=== PATIENT | female | born 1955 | race Caucasian/White ===

== ENCOUNTER 2024-02-09 12:27 | Outpatient (AMB) | payer MEDICARE, SELFPAY ==
--- NOTE | 2024-02-09 12:35 | MHC.OFFWIV ---
Intake Vital Signs 02/09/24 12:45 Height 5 ft 4 in Weight 164 lb BMI 28.1 BP 112/64 Blood Pressure Location Rt brachial Position Sitting Pulse 74 Pulse Source Pulse Oximeter Temp 97.7 F Temp Source Oral Pulse Oximetry (%) 97 Oxygen Delivery Method Room Air Intake Visit Reasons: EP ?UTI Intake Note: pt is here for c/o possible uti Allergies erythromycin base [ERYTHROMYCIN BASE] Allergy (Unknown, Verified 02/09/24 12:45) HIVES acetaminophen [From PERCOCET] Adverse Reaction (Unknown, Verified 02/09/24 12:45) STOMACH UPSET tramadol [TRAMADOL] Adverse Reaction (Unknown, Verified 02/09/24 12:45) NAUSEA & VOMITING From FLEXERIL Adverse Reaction (Unknown, Uncoded 04/26/20 16:50) NAUSEA & VOMITING From PERCOCET Adverse Reaction (Unknown, Uncoded 04/26/20 16:50) STOMACH UPSET Do you need a note to return to daycare/school/sports/work: No HPI HPI Comments History of Present Illness Details Patient is a 68-year-old female complaining of 2 days of pain with urination and slight burning. She denies any back pain, fevers or history of kidney stones. However she does state she has an elevated creatinine at baseline. Review of Systems Const All systems reviewed & are unremarkable except as noted in HPI and below Physical Exam Vital Signs: Last Vital Signs Temp 97.7 F 02/09/24 12:45 Pulse 74 02/09/24 12:45 BP 112/64 02/09/24 12:45 Pulse Ox 97 02/09/24 12:45 Oxygen Delivery Method Room Air 02/09/24 12:45 BMI result Body Mass Index 28.1 Const General: cooperative, healthy appearing, comfortable, no acute distress and well developed Orientation/consciousness: patient oriented x3 Limitations: no limitations Eyes General: appearance normal, both eyes and all related structures Resp Effort & Inspection: normal respiratory effort and able to speak in complete sentences General: Yes no CVA tenderness Back/Spine/Pelvis Back: no CVA tenderness Neuro General: patient oriented x3 Assessment & Plan Assessment & Plan (1) UTI (urinary tract infection): Code(s): N39.0 - Urinary tract infection, site not specified Qualifiers: Urinary tract infection type: acute cystitis Hematuria presence: with hematuria Qualified Code(s): N30.01 - Acute cystitis with hematuria Plan: UA positive for leukocyte esterase, protein and blood. Sent prescription for cefuroxime to pharmacy. Educated patient on signs and symptoms to know when to go to the emergency department Plan see above Medications: New cefuroxime axetil 500 mg PO Q12H 10 tabs 0RF Coding Level of Care Code Est Pt Level 3 (38428) Diagnoses Acute cystitis with hematuria N30.01 Urinary tract infection type: acute cystitis Hematuria presence: with hematuria
[2024-02-09 12:45] VITALS: BP 112/64; PULSE 74; TEMP 36.5; O2SAT 97; BMI 28.1
== END 2024-02-09 13:01 | disposition home or self-care (01) ==
PROVIDERS: Visit Provider Physician Assistant
DX: N30.01 Acute cystitis with hematuria (principal)
CPT/HCPCS: 81003; 99213

== ENCOUNTER 2024-02-27 12:40 | Outpatient (AMB) | payer MEDICARE, SELFPAY ==
[2024-02-27 12:44] VITALS: BP 132/70; PULSE 88; TEMP 36.8; O2SAT 96; BMI 28.3
--- NOTE | 2024-02-27 12:44 | MHC.OFFWIV ---
Intake Vital Signs 02/27/24 12:44 Height 5 ft 4 in Weight 165 lb BMI 28.3 BP 132/70 Blood Pressure Location Rt brachial Position Sitting Pulse 88 Pulse Source Pulse Oximeter Temp 98.2 F Temp Source Oral Pulse Oximetry (%) 96 Oxygen Delivery Method Room Air Intake Visit Reasons: EP UTI Intake Note: Pt is here today c/o burning upon urination and urgency Allergies erythromycin base [ERYTHROMYCIN BASE] Allergy (Unknown, Verified 02/27/24 13:04) HIVES acetaminophen [From PERCOCET] Adverse Reaction (Unknown, Verified 02/27/24 13:04) STOMACH UPSET tramadol [TRAMADOL] Adverse Reaction (Unknown, Verified 02/27/24 13:04) NAUSEA & VOMITING From FLEXERIL Adverse Reaction (Unknown, Uncoded 02/27/24 12:57) NAUSEA & VOMITING From PERCOCET Adverse Reaction (Unknown, Uncoded 02/27/24 12:57) STOMACH UPSET Medication List - Last Reconciled 02/27/24 by Chela Herozg, TELEGRAPH EDITOR-BC diltiazem HCl ER (DILT-XR) 180 mg PO DAILY hydrochlorothiazide 25 mg PO DAILY metoprolol succinate ER 50 mg PO DAILY omeprazole 40 mg PO DAILY simvastatin 40 mg PO QPM HPI HPI Comments History of Present Illness Details 69-year-old female here today with complaints of a UTI. Reports that the symptoms of dysuria started this morning. Was seen at another walk-in clinic about 3 weeks ago for a UTI and treated with Keflex. She reports that her symptoms resolved entirely and returned only this morning. She denies any fever, chills, abdominal pain, nausea, vomiting, back pain, vaginal discharge or itch. The urine today does show leukocytes, protein, blood, ketones, negative glucose. When asked about diabetes history she reports she does not have diabetes. When asked about his kidney disease history she does endorse elevated creatinine. She also states that she was on vacation for the last 6 days sitting in the sun and was not drinking enough fluid. Exam Awake alert oriented no acute distress Mucous membranes moist Regular rate and rhythm No CVAT bilat Suprapubic pressure with palpation Plan: Given her sx just started this AM, urine dip may not be + for nitrites yet, therefore i will go ahead and tx empirically w/ renally dosed Bactirm for 3 days. Encouraged to hydrate well and given RTO directions. This note is constructed using voice recognition software. While every effort has been made to ensure accuracy in medical radiation tech, still errors may have been included Sometimes, these errors may affect the content or meaning of the given sentence . Total time spent caring for the patient today was 30 minutes. This includes time spent before the visit reviewing the chart, time spent during the visit, and time spent after the visit on documentation Physical Exam Vital Signs: Last Vital Signs Temp 98.2 F 02/27/24 12:44 Pulse 88 02/27/24 12:44 BP 132/70 02/27/24 12:44 Pulse Ox 96 02/27/24 12:44 Oxygen Delivery Method Room Air 02/27/24 12:44 BMI result Body Mass Index 28.3 Results AMB Urinalysis, Automated UA Leukoctes 70 Karine/uL Last Edit by Elvira Alex CMA on 02/27/24 12:55 UA Nitrite Negative Last Edit by Elvira Alex CMA on 02/27/24 12:55 UA Urobilinogen 0.2 mg/dL Last Edit by Elvira Alex CMA on 02/27/24 12:55 UA Protein 30 mg/dL Last Edit by Elvira Alex CMA on 02/27/24 12:55 UA pH 6.0 Last Edit by Elvira Alex CMA on 02/27/24 12:55 UA Blood 10 Dutch/uL Last Edit by Elvira Alex CMA on 02/27/24 12:55 UA Specific [place] 1.025 Last Edit by Elvira Alex CMA on 02/27/24 12:55 UA Ketone Positive Last Edit by Elvira Alex CMA on 02/27/24 12:55 UA Bilirubin 1 mg/dL Last Edit by Elvira Alex CMA on 02/27/24 12:55 UA Glucose 0 mg/dL Last Edit by Elvira Alex CMA on 02/27/24 12:55 Results Reviewed Results Reviewed: Laboratory Last Values Urine pH (Auto) 6.0 02/27/24 12:45 Specific [place] (Auto) 1.025 02/27/24 12:45 Urine Protein (Auto) 30 mg/dL 02/27/24 12:45 Glucose (UA)(Auto) 0 mg/dL 02/27/24 12:45 Urine Ketones (Auto) Positive 02/27/24 12:45 Urine Blood (Auto) 10 Dutch/uL 02/27/24 12:45 Urine Nitrite (Auto) Negative 02/27/24 12:45 Urine Bilirubin (Auto) 1 mg/dL 02/27/24 12:45 Urine Urobilinogen (Auto) 0.2 mg/dL 02/27/24 12:45 Leukocyte Esterase (Auto) 70 Karine/uL 02/27/24 12:45 Assessment & Plan Assessment & Plan (1) UTI (urinary tract infection): Code(s): N39.0 - Urinary tract infection, site not specified Qualifiers: Urinary tract infection type: acute cystitis Hematuria presence: with hematuria Qualified Code(s): N30.01 - Acute cystitis with hematuria Plan: . Orders: Orders AMB Urinalysis Automated Today Z13.9 - Encounter for screening, unspecified Medications: New sulfamethoxazole-trimethoprim 400-80 mg (Bactrim) 1 tab PO BID 6 tabs 0RF Coding Level of Care Code Est Pt Level 4 (98350) Diagnoses Acute cystitis with hematuria N30.01 Urinary tract infection type: acute cystitis Hematuria presence: with hematuria
== END 2024-02-27 13:10 | disposition home or self-care (01) ==
PROVIDERS: Visit Provider Nurse Practitioner Family
DX: Z13.9 Encounter for screening, unspecified (principal); N30.01 Acute cystitis with hematuria
CPT/HCPCS: 81003; 99051; 99214

== ENCOUNTER 2024-09-15 09:50 | Outpatient (REF) | payer MEDICARE, SELFPAY ==
--- OUTSIDE RECORDS SUMMARY | 2024-09-15 11:14 | XMS_ITS | Clinical Summary ---
Author Organization [facility] Address [address] [place] [address] Care Team Providers Care Digital Asset Specialist Name Role Phone Vinay Lawson SHILPI Primary Care Provider [phone] Surgical History Surgery Date Site/Laterality Comments OTHER SURGICAL HISTORY 1998 PROCEDURE: CA TOTAL ABDOMINAL HYSTERECT W/WO RMVL TUBE OVARY TONSILLECTOMY PROCEDURE: HISTORICAL TONSILLECTOMY COLONOSCOPY 06/05/2008 PROCEDURE: HISTORICAL COLONOSCOPY; COMMENT: normal; repeat in ten years OTHER SURGICAL HISTORY 2003 PROCEDURE: CA ARTHRD ANT TRANSORL/XTRORAL C1-C2 W/WO EXC ODNTD OTHER SURGICAL HISTORY 2003 PROCEDURE: CA ARTHRODESIS POSTERIOR INTERBODY 1 [facility] EA ADDL Medical History Medical History Date Comments Unspecified hypothyroidism 08/16/2005 DX:Un specified hypothyroidism Lumbago 08/18/2005 DX:Lumbago Unspecified hypothyroidism 08/16/2005 DX:Un specified hypothyroidism Tobacco use disorder 07/21/2006 DX:Tobacco use disorder GERD (gastroesophageal reflu x disease) DX:GERD (gastroesophageal re flux disease) Pain of right hip joint DX:Pain of right hip joint Visual disturbance DX:Visual dis turbance Family History Medical History Relation Name Comments Other: Liver Transplant Brother 1 Other: Heart Disease Father Diabetes Mother No Known Problems Sister 1 No Known Problems Sister 2 Relation Name Status Comments Brother 1 at 61 y/o Brother 2 Alive Father (Age 51) Passed emmanuel y at 51 y/o Mother at 91 y/o Sister 1 Alive Sister 2 Alive Social History Tobacco Use Types Packs/Day Years Used Date Smoking Tobacco: Former Cigarettes Smokeless Tobacco: Never Alcohol Use Standard Drinks/Week Comments Yes 0 (1 standard drink = 0.6 oz pur e alcohol) Sex and Gender Information Value Date Recorded Sex Assigned at Not on file Gender Identity Not on file Sexual Orientation Not on file Obstetrics History Last Filed Vital Signs Vital Sign Reading Time Taken Comments Blood Pressure 136/76 06/30/2022 9:18 AM EST Sit ting L Arm Pulse 71 06/30/2022 9:10 AM EST Temperature - - Respiratory Rate - - Oxygen Saturation - - Inhaled Oxygen Concentration - - Weight 76.7 kg (169 lb) 06/30/2022 9:10 AM EST Height 162.6 cm (5' 4 ) 06/30/2022 9:10 AM EST Body Mass Index 29.01 06/30/2022 9:10 AM EST Plan of Treatment Health Maintenance Due Date Last Done Comments Zoster Vaccines (1 of 2) 02/10/2004 RSV Immunization Patients 60 + Years Old (1 - Risk 60-74 years 1-dose series) 2014 DTaP,Tdap,and Td Vaccines (2 - Td or Tdap) 11/01/2017 11/02/2007 Pneumococcal Vaccine: 65+ Years (1 of 1 - PCV) 2019 Cholesterol Screening (Lipid Panel) 07/08/2022 Colorectal Cancer Screening: Colonoscopy 07/08/2022 Depression Screening 07/08/2022 Falls Risk Assessment 07/08/2022 Hepatitis C Screening 07/08/2022 Social Influencers of Health Screening 07/08/2022 Hypertension/CHF/CAD Annual BMP Blood Test 07/20/2022 Breast Cancer Screening 01/14/2024 01/14/20, 01/09/2021, 07/26/2018 COVID-19 Vaccine ( - 2023-2 5 season) 2024 Influenza Vaccine (#1) 2024 Osteoporosis Screening (Bone Density Screening) 09/23/2031 09/23/2021 HIB Vaccines Aged Out No longer eligi ble based on patient's age to complete this topic HPV Vaccines Aged Out No longer eligi ble based on patient's age to complete this topic Hepatitis A Vaccines Aged Out No long er eligible based on patient's age to complete this topic Hepatitis B Vaccines Aged Out No long er eligible based on patient's age to complete this topic IPV Vaccines Aged Out No longer eligi ble based on patient's age to complete this topic MMR Vaccines Aged Out No longer eligi ble based on patient's age to complete this topic Meningococcal ACWY Vaccine Aged Out N o longer eligible based on patient's age to complete this topic RSV Immunization Patients Under 20 months Aged Out No longer eligible b ased on patient's age to complete this topic Varicella Vaccines Aged Out No longer eligible based on patient's age to complete this topic Procedures Procedure Name Priority Date/Time Associated Diagnosis Comments [facility] SCREENING DIGITAL Routine 01/13/2022 10:09 AM EDT Encounter for screening mammogram for malignant neoplasm of breast [facility] DEXA AXIAL SKELETON Routine 09/23/2021 11:48 AM EST Encounter for screening for osteoporosis from Last 3 Months or Most Recently Relevant to Health Maintenance Results * [facility] SCREENING DIGITAL (01/13/2022 10:09 AM EDT) Anatomical Region Laterality Modality Mammography 01/13/2022 8:33 AM EDT Narrative 01/13/2022 10:09 AM EDT [facility] Diagnostic Imaging Department [address] [place], [place] [address] Patient: ??SANTY MCCURDY ?/Age/Sex: 1955 - 66 - F Unit#: ??[id number] ? Location/Status: ??SPDIMAM/REG CLI ? Mnemonic/Ordering Site: ??DIGSC/SPMAM Ordering Physician: ??VINAY LAWSON DNP [facility] Screening Digital - 01/13/22911 INDICATION: SCREENING COMPARISON: [facility] mammograms dating back to ?? 07/19/2011 TECHNIQUE: CC and MLO views of the breasts were obtained, using full field digital mammography with 3D tomosynthesis views in the MLO projection. Computer aided detection with the [employer] 7.2-H was employed. FINDINGS: The breasts contain scattered fibroglandular tissues. No suspicious masses, suspicious microcalcifications, or areas of architectural distortion are identified. ??There are no secondary signs of breast malignancy. Benign-appearing breast and dermal type calcifications are present bilaterally. IMPRESSION: ??No specific mammographic evidence of breast malignancy. Lack of an imaging correlate should not deter or delay biopsy of a clinically significant palpable finding. BI-RADS ??- Category 2 - Benign finding 3342F, 7025F Annual screening mammography is recommended. Patient entered into a reminder system with a target date for the next mammogram. (G0202 / [id number]) , ??[id number] Dictating Physician: ??HARMONY LINCOLN MD Electronically Signed by: ??HARMONY LINCOLN MD Dic Date/Time: ??01/13/22 1005 Sign date/Time: ??01/13/22 1009 Procedure Note Harmony Lincoln MD - 07/30/2022 [facility] Diagnostic Imaging Department [address] [place] [address] Patient: SANTY MCCURDY Eri /Age/Sex: 1955 - 66 - F Unit#: [id number] Location/Status: [facility] CLI Mnemonic/Ordering Site: [facility] Ordering Physician: VINAY LAWSON DNP [facility] Screening Digital - 01/13/22 - 911 INDICATION: SCREENING COMPARISON: [facility] mammograms dating back to 07/19/2011 TECHNIQUE: CC and MLO views of the breasts were obtained, using full field digital mammography with 3D tomosynthesis views in the MLO projection. Computer aided detection with the [employer].2-H was employed. FINDINGS: The breasts contain scattered fibroglandular tissues. No suspicious masses, suspicious microcalcifications, or areas ofarchitectural distortion are identified. There are no secondary signs of breastmalignancy. Benign-appearing breast and dermal type calcifications are presentbilaterally. IMPRESSION: No specific mammographic evidence of breast malignancy. Lack of an imaging correlate should not deter or delay biopsy of aclinically significant palpable finding. BI-RADS - Category 2 - Benign finding 3342F, 7025F Annual screening mammography is recommended. Patient entered into a reminder system with a target date for the next mammogram. (G0202 / [id number] , [id number] Dictating Physician: HARMONY LINCOLN MD Electronically Signed by: HARMONY LINCOLN MD Dic Date/Time: 01/13/22 1005 Sign date/Time: 01/13/22 1009 Vinay Lawson NP IMG BI PROCEDURES * [facility] DEXA AXIAL SKELETON (09/23/2021 11:48 AM EST) Anatomical Region Laterality Modality Mammography 09/23/2021 9:52 AM EST Narrative 09/23/2021 11:48 AM EST [facility] Diagnostic Imaging Department [address] [place] [id number] Patient: ??SANTY MCCURDY ?/Age/Sex: 1955 - 66 - F Unit#: ??[id number] ? Location/Status: ??SPDIMAM/REG CLI ? Mnemonic/Ordering Site: ??MAMDEXAAX/SPMAM Ordering Physician: ??RICAEVELIO Nita Dexa Axial Skeleton - 09/23/21 - 1029 [facility] Dexa Axial Skeleton INDICATION: POST MENOPAUSE Technique: Bone densitometry was performed utilizing dual energy x-ray absorptiometry (DEXA). The lumbar spine is evaluated in the AP projection at L1 and L2. L3 and L4 were omitted because of endplate sclerosis. The proximal femora are evaluated in the AP projection bilaterally. The patient is taking vitamin D supplements. COMPARISON: 01/27/2013 FINDINGS: AP spine: Bone mineral density: 1.190 gm/cm2 T-score: 0.2 Left femoral neck: Bone mineral density: 0.784 gm/cm2 T-score: -1.8 IMPRESSION: Findings suggesting osteopenia, placing the patient at risk for fracture. Statistically significant 5% interval decrease in left femoral neck bone mineral density The FRAX result suggests a 10 year probability of major osteoporotic fracture of 12.2 % and hip fracture of 2.3%. 10 year probability of osteoporotic fracture may be lower than FRAX estimate if patient has received treatment. [id number] Dictating Physician: ??HARMONY LINCOLN MD Electronically Signed by: ??HARMONY LINCOLN MD Dic Date/Time: ??09/23/21 1146 Sign date/Time: ??09/23/21 1148 Procedure Note Harmony Lincoln MD - 07/30/2022 [facility] Diagnostic Imaging Department [address] [place] [address] Patient: SANTY MCCURDY /Age/Sex: 1955 - 66 - F Unit#: [id number] Location/Status: SPDIMAM/REG CLI Mnemonic/Ordering Site: MAMDEXAAX/SPMAM Ordering Physician: EVELIO STRAUSS [facility]ita Dexa Axial Skeleton - 09/23/21 - 1030 [facility] Dexa Axial Skeleton INDICATION: POST MENOPAUSE Technique: Bone densitometry was performed utilizing dual energy x-ray absorptiometry (DEXA). The lumbar spine is evaluated in the AP projectionat L1 and L2. L3 and L4 were omitted because of endplate sclerosis. Theproximal femora are evaluated in the AP projection bilaterally. The patient is taking vitamin D supplements. COMPARISON: 01/27/2013 FINDINGS: AP spine: Bone mineral density: 1.190 gm/cm2 T-score: 0.2 Left femoral neck: Bone mineral density: 0.784 gm/cm2 T-score: -1.8 IMPRESSION: Findings suggesting osteopenia, placing the patient at risk forfracture. Statistically significant 5% interval decrease in left femoral neck bone mineral density The FRAX result suggests a 10 year probability of major osteoporoticfracture of 12.2 % and hip fracture of 2.3%. 10 year probability of osteoporotic fracture may be lower than FRAXestimate if patient has received treatment. [id number] Dictating Physician: HARMONY LINCOLN MD Electronically Signed by: HARMONY LINCOLN MD Dic Date/Time: 09/23/21 1146 Sign date/Time: 09/23/21 1148 Radiology Results Historical MD MCKEON BI P ROCEDURES from Last 3 Months or Most Recently Relevant to Health Maintenance Care Teams Digital Asset Specialist Relationship Specialty Start Date End Date Vinay Lawson NP [address] [place] [address] PCP - General 06/30/22
[2024-09-15 12:58] LABS: MANUAL DIFF FLAG NO
[2024-09-15 13:00] LABS: Basophils Percent Auto 0.3 % (0-2); Eosinophils Absolute Auto 0.1 X10*3/uL (0.0-0.4); Eosinophils Percent Auto 1.9 % (0-4); Hematocrit 46.7 % (37.0-47.0); Hemoglobin 15.2 g/dl (12.0-16.0); Imm Gran Abs Auto 0.03 X10*3/uL (0.00-0.03); Imm Gran Pct Auto 0.4 % (0.0-0.4); Lymphocytes Absolute Auto 1.6 X10*3/uL (1.2-4.9); Lymphocytes Percent Auto 22.2 % (20-40); Mean Corpuscular HGB Conc 32.5 g/dl (31.0-35.0); Mean Corpuscular Hemoglobin 28.9 pg (27.0-33.0); Mean Corpuscular Volume 88.8 fL (80.0-98.0); Mean Platelet Volume 11.8 fL (9.4-12.3); Monocytes Absolute Auto 0.6 X10*3/uL (0.1-1.2); Monocytes Percent Auto 8.3 % (2-11); Neutrophils Absolute Auto 4.7 x10*3/uL (2.0-8.3); Neutrophils Percent Auto 66.9 % (45-73); Platelet Count 262 X10*3/uL (160-400); Red Blood Count 5.26 X10*6/uL (4.20-5.50); Red Cell Distribution Width 12.3 % (11.0-16.0)
[2024-09-15 13:20] LABS: Alanine Aminotransferase 14 U/L (0-31); Albumin Level 4.1 g/dL (3.5-5.0); Alkaline Phosphatase 61 U/L (39-117); Anion Gap 13 (12-20); Aspartate Amino Transferase 18 U/L (5-31); Bilirubin Total 0.4 mg/dL (0.0-1.0); Blood Urea Nitrogen 20 mg/dL (9-16); Calcium 10.1 mg/dL (8.4-10.2); Carbon Dioxide 29 mmol/L (22-29); Chloride 102 mmol/L (96-108); Estimated Glomerular Filt Rate > 60; Glucose Random 110 mg/dL (60-115); Potassium 4.5 mmol/L (3.3-5.1); Sodium 139 mmol/L (135-145); Total Protein 7.6 g/dL (6.5-8.0)
[2024-09-19 14:08] LABS: Vitamin D 25-OH, D2 <4 ng/mL; Vitamin D 25-OH, D3 46 ng/mL; Vitamin D 25-OH, Total 46 ng/mL (30-100)
== END 2024-09-15 09:51 | disposition home or self-care (01) ==
LOC: HO.HMGCLDS 09:50
PROVIDERS: PCP Internal Medicine; Visit Provider Internal Medicine
DX: I10 Essential (primary) hypertension (principal); E03.9 Hypothyroidism, unspecified; E78.5 Hyperlipidemia, unspecified; Z92.89 Personal history of other medical treatment; Z98.890 Other specified postprocedural states
CPT/HCPCS: 36415; 80053; 82306; 84443; 85025; 96127; 99202

== ENCOUNTER 2024-10-03 10:00 | Outpatient (AMB) | payer MEDICARE, SELFPAY ==
--- OUTSIDE RECORDS SUMMARY | 2024-10-03 11:06 | XMS_ITS | Clinical Summary ---
Author Organization [facility] [[email or web address]] Address [address] [place] [address] Care Team Providers Care Human Relations Manager Name Role Phone Vinay Lawson SHILPI Primary Care Provider [phone] Surgical History Surgery Date Site/Laterality Comments OTHER SURGICAL HISTORY 1998 PROCEDURE: SD TOTAL ABDOMINAL HYSTERECT W/WO RMVL TUBE OVARY TONSILLECTOMY PROCEDURE: HISTORICAL TONSILLECTOMY COLONOSCOPY 06/05/2008 PROCEDURE: HISTORICAL COLONOSCOPY; COMMENT: normal; repeat in ten years OTHER SURGICAL HISTORY 2003 PROCEDURE: SD ARTHRD ANT TRANSORL/XTRORAL C1-C2 W/WO EXC ODNTD OTHER SURGICAL HISTORY 2003 PROCEDURE: SD ARTHRODESIS POSTERIOR INTERBODY 1 [facility] EA ADDL Medical History Medical History [...] drink = 0.6 oz pur e alcohol) Comments Unknown Sex and Gender Information Value Date Recorded Sex Assigned at Not on file Legal Sex Female 12:53 PM EST Gender Identity Not on file Sexual Orientation [...] Health Maintenance Due Date Last Done Comments Pneumococcal Vaccine: 50+ Years (1 of 1 - PCV) 02/10/2004 Zoster Vaccines (1 of 2) 02/10/2004 RSV Immunization Patients 60 + Years Old (1 - Risk 60-74 years 1-dose series) 2014 DTaP,Tdap,and Td Vaccines (2 - Td or Tdap) 11/01/2017 11/02/2007 Cholesterol Screening (Lipid Panel) 07/08/2022 Colorectal Cancer [...] patient's age to complete this topic Meningococcal B Vacine Aged Out No lo nger eligible based on patient's age to complete this topic RSV Immunization Patients Under 20 months Aged Out No longer eligible b ased on patient's age to complete this topic Varicella Vaccines Aged Out No longer eligible based on patient's age to complete this topic Procedures Procedure Name Priority Date/Time Associated Diagnosis Comments [facility] SCREENING DIGITAL Routine 01/13/2022 10:09 AM EDT Encounter for screening mammogram for malignant neoplasm of breast [facility] DEXA AXIAL SKELETON Routine 09/23/2021 11:48 AM EST Encounter for screening for osteoporosis from Last 3 Months or Most Recently Relevant to Health Maintenance Results * [facility] SCREENING DIGITAL (01/13/2022 10:09 AM EDT) Anatomical Region Laterality Modality Mammography 01/13/2022 8:33 AM EDT Narrative 01/13/2022 10:09 AM EDT [facility] Diagnostic Imaging Department [address] [place], [place] [address] Patient: ??SANTY MCCURDY ?/Age/Sex: 1955 - 66 - F Unit#: ??[id number] ? Location/Status: ??SPDIMAM/REG CLI ? Mnemonic/Ordering Site: ??DIGSC/SPMAM Ordering Physician: ??VINAY LAWSON DNP Nita Screening Digital - 01/13/22911 INDICATION: SCREENING COMPARISON: [facility] mammograms dating back to ?? 07/19/2011 TECHNIQUE: CC and MLO views of the breasts were obtained, using full field digital mammography with 3D tomosynthesis views in the MLO projection. Computer aided detection with the icomasoft 7.2-H was employed. FINDINGS: The breasts contain [...] date for the next mammogram. (G0202 / [id number]) , ??[id number] Dictating Physician: ??HARMONY LINCOLN MD Electronically Signed by: ??HARMONY LINCOLN MD Dic Date/Time: ??01/13/22 1005 Sign date/Time: ??01/13/22 1009 Procedure Note Harmony Lincoln MD - 07/30/2022 [facility] Diagnostic Imaging Department [address] [place], [place] [address] Patient: CALLISANTY /Age/Sex: 1955 - 66 - F Unit#: [id number] Location/Status: SPDIMA/REG CLI Mnemonic/Ordering Site: [facility] Ordering Physician: VINAY LAWSON DNP Nita Screening Digital - 01/13/22 - 911 INDICATION: SCREENING COMPARISON: [facility] mammograms dating back to 07/19/2011 TECHNIQUE: CC and MLO views of the breasts were obtained, using full field digital mammography with 3D tomosynthesis views in the MLO projection. Computer aided detection with the icomasoft 7.2-H was employed. FINDINGS: The breasts contain [...] a target date for the next mammogram. G0507 / [id number]) , [id number] Dictating Physician: HARMONY LINCOLN MD Electronically Signed by: HARMONY LINCOLN MD Dic Date/Time: 01/13/22 1005 Sign date/Time: 01/13/22 1009 us Vinay Lawson FERRY HAND IMG BI PROCEDURES Final Resul t * NITA DEXA AXIAL SKELETON (09/23/2021 11:48 AM EST) Anatomical Region Laterality Modality Mammography 09/23/2021 9:52 AM EST Narrative 09/23/2021 11:48 AM EST [facility] Diagnostic Imaging Department [address] [place] [address] Patient: ??SANTY MCCURDY ?/Age/Sex: 1955 - 66 - F Unit#: ??[id number] ? Location/Status: ??SPDIMAM/REG CLI ? Mnemonic/Ordering Site: ??MAMDEXAAX/SPMAM Ordering Physician: ??EVELIO STRAUSS [facility] Dexa Axial Skeleton - 09/23/21 - 1030 [facility] Dexa Axial Skeleton INDICATION: POST MENOPAUSE Technique: [...] FRAX estimate if patient has received treatment. [id number] Dictating Physician: ??HARMONY LINCOLN MD Electronically Signed by: ??HARMONY LINCOLN MD Dic Date/Time: ??09/23/21 1146 Sign date/Time: ??09/23/21 1148 Procedure Note Harmony Lincoln MD - 07/30/2022 [facility] Diagnostic Imaging Department [address] [place] [address] Patient: SANTY MCCURDY Eri /Age/Sex: 1955 - 66 - F Unit#: [id number] Location/Status: SPDIMAM/REG CLI Mnemonic/Ordering Site: MAMDEXAAX/SPMAM Ordering Physician: EVELIO STRAUSS Nita Dexa Axial Skeleton - 09/23/21 - 1030 [facility] Dexa Axial Skeleton INDICATION: POST MENOPAUSE Technique: [...] than FRAXestimate if patient has received treatment. [id number] Dictating Physician: HARMONY LINCOLN MD Electronically Signed by: HARMONY LINCOLN MD Dic Date/Time: 09/23/21 1146 Sign date/Time: 09/23/21 1148 us Radiology Results Historical MD MCKEON BI PROCEDURE S Final Result from Last 3 Months or Most Recently Relevant to Health Maintenance Care Teams Human Relations Manager Relationship Specialty Start Date End Date Vinay Lawson NP [address] [place] [address] PCP - General 06/30/22
--- NOTE | 2024-10-03 11:11 | AM.OFFWIN_ITS ---
Intake Vital Signs 10/03/24 11:12 Height 5 ft 4 in Weight 165 lb BMI 28.3 BP 124/72 Blood Pressure Location Lt brachial Position Sitting Pulse 76 Pulse Source Pulse Oximeter Temp 97.9 F Temp Source Oral Pulse Oximetry (%) 97 Intake Visit Reasons: EP-rt arm & shoulder pain Patient Tobacco Use Status: Former Tobacco user (16 years ago) Allergies erythromycin base [ERYTHROMYCIN BASE] Allergy (Unknown, Verified 10/03/24 11:12) HIVES acetaminophen [From PERCOCET] Adverse Reaction (Unknown, Verified 10/03/24 11:12) STOMACH UPSET tramadol [TRAMADOL] Adverse Reaction (Unknown, Verified 10/03/24 11:12) NAUSEA & VOMITING From FLEXERIL Adverse Reaction (Unknown, Uncoded 09/15/24 10:23) NAUSEA & VOMITING From PERCOCET Adverse Reaction (Unknown, Uncoded 09/15/24 10:23) STOMACH UPSET Do you need a note to return to daycare/school/sports/work: No HPI HPI Comments History of Present Illness Details History of Present Illness - The patient is a 69-year-old female pr esenting with right arm pain and weakness. - Symptoms have been present for a week, localized mainly to the biceps area, forearm and dorsal hand. - Describes feeling a constant, aching p ain, worsening with activity like lifting or putting on a bra or coat. - Weakness is also noted, causing diffic ulty with lifting objects such as a coffee cup. - No history of recent trauma or signifi cant change in exercise routine was reported. - Self-management with Tylenol and salon patches provided minimal relief. The absence of numbness or tingling was noted. - NSAIDs were limited due to previous mi ld renal concerns. Physical Exam General: Cooperative, healthy appearing, comfortable, no acute distress and well developed Orientation: Patient oriented x3 Head: Normal to inspection Ears: Hearing grossly normal bilaterally Nose: Normal external nose present Face and sinus: Normal facial exam Eyes: Appearance normal, both eyes and all related structures Neck: Normal visual inspection and Yes full ROM Respiratory: Normal respiratory effort and able to speak in complete sentences Skin: No rashes or lesions noted Neuro: Patient oriented x3 Extremities: as below [facility] Surgical History (Updated 09/15/24 @ 10:58 by Vinita Pedro MD) Hx of tonsillectomy History of back surgery Hx of hysterectomy Family History (Updated 09/15/24 @ 10:28 by PATRICIA Solares) Father Heart failure Mother Diabetes Social History (Updated 09/15/24 @ 14:05 by Vinita Pedro MD) Household Members Other:: , 3 adult children (2 live in [place]) works for [employer] Housing: House Patient Tobacco Use Status: Former Tobacco user (16 years ago) e-Cigarette/Vaping Use: Never Used service: No Current occupational status: employed Cognitive needs: No Hearing needs: No Vision needs: Yes Review of Systems Const All systems reviewed & are unremarkable except as noted in HPI and below Physical Exam Vital Signs: Last Vital Signs Temp 97.9 F 10/03/24 11:12 Pulse 76 10/03/24 11:12 BP 124/72 10/03/24 11:12 Pulse Ox 97 10/03/24 11:12 BMI result Body Mass Index 28.3 Back/Spine/Pelvis Cervical Spine: normal cervical lordosis, cervical ROM normal, No cervical muscular tenderness and No Cervical spine tenderness Extrem Right upper extremity: shoulder/upper arm Details: normal to inspection, tenderness Location: over the biceps tendon, axillary nerve sensory function normal and abnormal ROM Details: pain with active ROM Details: in ADduction and in flexion; no swelling, no abrasions, no lacerations, no ecchymosis, no deformity and no unusual warmth, elbow/forearm Details: normal to inspection and normal ROM; no tenderness, no swelling, no unusual warmth, no abrasions, no lacerations, no ecchymosis and no deformity, wrist Details: normal to inspection and Extremity exam: right hand (5/5 strength bilaterally) Details: normal to inspection, normal capillary refill, neuromotor exam normal, neurosensory exam normal, tendon exam normal and normal ROM of fingers; no tenderness, no unusual warmth, no swelling, no abrasions, no lacerations and no ecchymosis Assessment & Plan Assessment & Plan (1) Bicipital tendonitis of right shoulder: Code(s): M75.21 - Bicipital tendinitis, right shoulder Plan: GFR is >60 with normal Cr 0.87. For the current presentation of bicipital tendinitis, I have recommended a short course of Aleve naproxen for its anti-inflammatory effects, advising usage of no more than three days and ensuring adequate hydration due to previous kidney concerns. Supplementary Tylenol may be taken for additional pain relief. I advised the patient to rest the right arm significantly, restricting activities that might aggravate the condition. A sling was given to serve as a reminder to limit arm use, avoiding overuse that could delay healing. The patient's upcoming travel plans may aid in further reducing arm activity, providing a period of rest to alleviate symptoms. The advisement includes monitoring symptoms for improvement, acknowledging the importance of minimizing potential kidney impact with NSAID use. No improvement in her pain, she should return to the clinic or follow up with her PCP and we will send an orthopedics referral Patient was informed and verbally consented to the use of an ambient scribe for clinic note documentation during this visit. Medications: New naproxen 500 mg PO Q12H PRN 10 tabs 0RF pain Coding Level of Care Code Est Pt Level 4 (69265) Diagnoses Bicipital tendonitis of right shoulder M75.21
[2024-10-03 11:12] VITALS: BP 124/72; PULSE 76; TEMP 36.6; O2SAT 97; BMI 28.3
== END 2024-10-03 11:54 | disposition home or self-care (01) ==
PROVIDERS: Visit Provider Physician Assistant
DX: M75.21 Bicipital tendinitis, right shoulder (principal)

== ENCOUNTER → 2024-10-03 10:00 | Outpatient (BNVA) | payer MEDICARE, SELFPAY | DX: M75.21 Bicipital tendinitis, right shoulder (principal) | CPT/HCPCS: 99212 ==

== ENCOUNTER 2024-10-24 09:59 | Outpatient (AMB) | payer MEDICARE, SELFPAY ==
[2024-10-24 10:01] VITALS: BP 118/78; PULSE 68; TEMP 36.6; O2SAT 99; BMI 28.3
--- NOTE | 2024-10-24 10:01 | MHC.OFFWIV ---
Intake Vital Signs 10/24/24 10:01 Height 5 ft 4 in Weight 165 lb BMI 28.3 BP 118/78 Blood Pressure Location Lt brachial Position Sitting Pulse 68 Pulse Source Pulse Oximeter Temp 97.8 F Temp Source Oral Pulse Oximetry (%) 99 Intake Visit Reasons: EP pain on RT arm Intake Note: pt is here for right arm pain Patient Tobacco Use Status: Former Tobacco user (16 years ago) Allergies erythromycin base [ERYTHROMYCIN BASE] Allergy (Unknown, Verified 10/24/24 10:01) HIVES acetaminophen [From PERCOCET] Adverse Reaction (Unknown, Verified 10/24/24 10:01) STOMACH UPSET tramadol [TRAMADOL] Adverse Reaction (Unknown, Verified 10/24/24 10:01) NAUSEA & VOMITING From FLEXERIL Adverse Reaction (Unknown, Uncoded 09/15/24 10:23) NAUSEA & VOMITING From PERCOCET Adverse Reaction (Unknown, Uncoded 09/15/24 10:23) STOMACH UPSET Do you need a note to return to daycare/school/sports/work: No HPI HPI Comments History of Present Illness Details History of Present Illness - The patient is a 69-year-old female presenting with biceps tendinitis, originally seen on 10/03/24 for this issue. - She used a sling for 7 days, Aleve and rested it and it's better some days, worse others, overall not better. - The pain commonly initiates in the biceps, spreads across the chest, and continues down the arm, affecting daily functionalities like opening bottles. - Pain exacerbates with specific movements, including efforts to lift or rotate the arm, while there is no effective relief from current therapeutic measures. - Attempts at rest and [id number]-bysptex anti-inflammatory medications have been inadequate in pain management. 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 - no specific injury Physical Exam General: Cooperative, healthy appearing, comfortable, no acute distress and well developed Orientation: Patient oriented x3 Limitations: Limitations in the right arm due to pain Head: Normal to inspection Ears: Hearing grossly normal bilaterally Nose: Normal external nose present Face and sinus: Normal facial exam Eyes: Appearance normal, both eyes and all related structures Neck: Normal visual inspection and Yes full ROM Respiratory: Normal respiratory effort and able to speak in complete sentences. Skin: No rashes or lesions noted Neuro: Patient oriented x3 Extremities:see below PFSH Surgical History (Updated 09/15/24 @ 10:58 by Vinita Pedro MD) Hx of tonsillectomy History of back surgery Hx of hysterectomy Family History (Updated 09/15/24 @ 10:28 by Mariya Herron [facility]) Father Heart failure Mother Diabetes Social History (Updated 09/15/24 @ 14:05 by Vinita Pedro MD) Household Members Other:: , 3 adult children (2 live in [place]) works for [employer] Housing: House Patient Tobacco Use Status: Former Tobacco user (16 years ago) e-Cigarette/Vaping Use: Never Used service: No Current occupational status: employed Cognitive needs: No Hearing needs: No Vision needs: Yes Review of Systems Const All systems reviewed & are unremarkable except as noted in HPI and below Physical Exam Vital Signs: Last Vital Signs Temp 97.8 F 10/24/24 10:01 Pulse 68 10/24/24 10:01 BP 118/78 10/24/24 10:01 Pulse Ox 99 10/24/24 10:01 BMI result Body Mass Index 28.3 Extrem Right upper extremity: shoulder/upper arm (+ empty can) Details: normal to inspection, tenderness Location: over the biceps tendon (insertion point tenderness) and abnormal ROM Details: pain with active ROM Details: in ABduction, in flexion and in internal rotation; no swelling, no lacerations, no ecchymosis and no deformity Assessment & Plan Assessment & Plan (1) Bicipital tendonitis of right shoulder: Code(s): M75.21 - Bicipital tendinitis, right shoulder Plan: An orthopedic referral has been arranged due to ongoing biceps tendinitis symptoms with possible rotator cuff pathology despite previous conservative management. In light of the patient's continued discomfort and inadequate response to NSAIDs and rest, orthopedic imaging might be warranted. While awaiting specialist consultation, the patient should continue activity modification and NSAID use with caution to avoid symptom exacerbation. The appointment details with [facility] will be communicated to the patient. Patient was informed and verbally consented to the use of an ambient scribe for clinic note documentation during this visit. (2) Rotator cuff (capsule) sprain: Code(s): S43.429A - Sprain of unspecified rotator cuff capsule, initial encounter Qualifiers: Encounter type: subsequent encounter Laterality: right Qualified Code(s): S43.421D - Sprain of right rotator cuff capsule, subsequent encounter Plan: as above Orders: Referrals Orthopedics Referral M75.21 - Bicipital tendinitis, right shoulder Coding Level of Care Code Est Pt Level 3 (52461) Diagnoses Bicipital tendonitis of right shoulder M75.21 Sprain of right rotator cuff capsule, subsequent encounter S43.421D Encounter type: subsequent encounter Laterality: right
--- OUTSIDE RECORDS SUMMARY | 2024-10-24 11:06 | XMS_ITS | Clinical Summary ---
Author Organization [facility] Address [address] [place] [address] Care Team Providers Care Mosquito Sprayer Name Role Phone Vinay Lawson SHILPI Primary Care Provider [phone] Surgical History Surgery Date Site/Laterality Comments OTHER SURGICAL HISTORY 1998 PROCEDURE: [place] TOTAL ABDOMINAL HYSTERECT W/WO RMVL TUBE OVARY TONSILLECTOMY PROCEDURE: HISTORICAL TONSILLECTOMY COLONOSCOPY 06/05/2008 PROCEDURE: HISTORICAL COLONOSCOPY; COMMENT: normal; repeat in ten years OTHER SURGICAL HISTORY 2003 PROCEDURE: [place] ARTHRD ANT TRANSORL/XTRORAL C1-C2 W/WO EXC ODNTD OTHER SURGICAL HISTORY 2003 PROCEDURE: [place] ARTHRODESIS POSTERIOR INTERBODY 1 [facility] EA ADDL Medical History Medical History [...] Procedure Name Priority Date/Time Associated Diagnosis Comments [facility] SCREENING DIGITAL Routine 01/13/2022 10:09 AM EDT Encounter for screening mammogram for malignant neoplasm of breast [facility] DEXA AXIAL SKELETON Routine 09/23/2021 11:48 AM EST Encounter for screening for osteoporosis from Last 3 Months or Most Recently Relevant to Health Maintenance Results * [facility] SCREENING DIGITAL (01/13/2022 10:09 AM EDT) Anatomical Region Laterality Modality Mammography 01/13/2022 8:33 AM EDT Narrative 01/13/2022 10:09 AM EDT [facility] Diagnostic Imaging Department [address] [place], [place] [address] Patient: ??SANTY MCCURDY ?/Age/Sex: 1955 - 66 - F Unit#: ??[id number] ? Location/Status: ??SPDIMAM/REG CLI ? Mnemonic/Ordering Site: ??DIGSC/SPMAM Ordering Physician: ??VINAY LAWSON DNP Nita Screening Digital - 01/13/22911 INDICATION: SCREENING COMPARISON: [facility] mammograms dating back to ?? 07/19/2011 TECHNIQUE: CC and MLO views of the breasts were obtained, using full field digital mammography with 3D tomosynthesis views in the MLO projection. Computer aided detection with the Leosphere 7.2-H was employed. FINDINGS: The breasts contain [...] date for the next mammogram. (G0202 / 49509) , ??[id number] Dictating Physician: ??HARMONY LINCOLN MD Electronically Signed by: ??HARMONY LINCOLN MD Dic Date/Time: ??01/13/22 1005 Sign date/Time: ??01/13/22 1009 Procedure Note Harmony Lincoln MD - 07/30/2022 [facility] Diagnostic Imaging Department [address] [place], [place] [address] Patient: CALLISANTY /Age/Sex: 1955 - 66 - F Unit#: [id number] Location/Status: SPDIMA/REG CLI Mnemonic/Ordering Site: [facility] Ordering Physician: VINAY LAWSON DNP Nita Screening Digital - 01/13/22 - 911 INDICATION: SCREENING COMPARISON: [facility] mammograms dating back to 07/19/2011 TECHNIQUE: CC and MLO views of the breasts were obtained, using full field digital mammography with 3D tomosynthesis views in the MLO projection. Computer aided detection with the Leosphere 7.2-H was employed. FINDINGS: The breasts contain [...] a target date for the next mammogram. G0673 / 17641) , [id number] Dictating Physician: HARMONY LINCOLN MD Electronically Signed by: HARMONY LINCOLN MD Dic Date/Time: 01/13/22 1005 Sign date/Time: 01/13/22 1009 us Vinay Lawson UPHOLSTERY ESTIMATOR IMG BI PROCEDURES Final Resul t * NITA DEXA AXIAL SKELETON (09/23/2021 11:48 AM EST) Anatomical Region Laterality Modality Mammography 09/23/2021 9:52 AM EST Narrative 09/23/2021 11:48 AM EST [facility] Diagnostic Imaging Department [address] [place] [address] Patient: ??SANTY MCCURDY ?/Age/Sex: 1955 - 66 - F Unit#: ??[id number] ? Location/Status: ??SPDIMAM/REG CLI ? Mnemonic/Ordering Site: ??MAMDEXAAX/SPMAM Ordering Physician: ??EVLEIO STRAUSS [facility] Dexa Axial Skeleton - 09/23/21 - 1030 [facility] Dexa Axial Skeleton INDICATION: POST [...] FRAX estimate if patient has received treatment. [id number] Dictating Physician: ??HARMONY LINCOLN MD Electronically Signed by: ??HARMONY LINCOLN MD Dic Date/Time: ??09/23/21 1146 Sign date/Time: ??09/23/21 1148 Procedure Note Harmony Lincoln MD - 07/30/2022 [facility] Diagnostic Imaging Department [address] [place] [address] Patient: SANTY MCCURDY Eri /Age/Sex: 1955 - 66 - F Unit#: [id number] Location/Status: SPDIMAM/REG CLI Mnemonic/Ordering Site: MAMDEXAAX/SPMAM Ordering Physician: EVELIO STRAUSS [facility] Dexa Axial Skeleton - 09/23/21 - 1030 [facility] Dexa Axial Skeleton INDICATION: POST [...] than FRAXestimate if patient has received treatment. [id number] Dictating Physician: HARMONY LINCOLN MD Electronically Signed by: HARMONY LINCOLN MD Dic Date/Time: 09/23/21 1146 Sign date/Time: 09/23/21 1148 us Radiology Results Historical MD MCKEON BI PROCEDURE S Final Result from Last 3 Months or Most Recently Relevant to Health Maintenance Care Teams Mosquito Sprayer Relationship Specialty Start Date End Date Vinay Lawson NP [address] [place] [address] PCP - General 06/30/22
== END 2024-10-24 10:49 | disposition home or self-care (01) ==
PROVIDERS: Visit Provider Physician Assistant
DX: M75.21 Bicipital tendinitis, right shoulder (principal); S43.421D Sprain of right rotator cuff capsule, subsequent encounter

== ENCOUNTER → 2024-10-24 09:59 | Outpatient (BNVA) | payer MEDICARE, SELFPAY | PROVIDERS: Visit Provider Internal Medicine | DX: M75.21 Bicipital tendinitis, right shoulder (principal); S43.421D Sprain of right rotator cuff capsule, subsequent encounter | CPT/HCPCS: 99212 ==

== ENCOUNTER 2024-11-30 11:10 | Outpatient (REF) | payer MEDICARE, SELFPAY ==
--- NOTE | ~2024-11-30 | XR_ITS ---
EXAMINATION: XR SHOULDER, RIGHT CLINICAL INFORMATION: M25.511 - Pain in right shoulder COMPARISON: None available. TECHNIQUE: Two views of the right shoulder. FINDINGS: Normal bone mineralization. No fracture, dislocation, or suspicious bone lesion. Normal alignment. The glenohumeral joint is normal. The AC joint demonstrates minimal spurring. There is a type II acromion. No undersurface spurring. The subacromial space is preserved. Remainder of the soft tissue and bony structures appear normal. XR/XR shoulder RT min 2V IMPRESSION: 1. 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 Otherwise normal right shoulder. Electronically signed by: Yusuf Garcia MD 12/02/2024 09:01 AM EDT RP
--- OUTSIDE RECORDS SUMMARY | 2024-12-01 13:19 | XMS_ITS | Clinical Summary ---
Author Organization [facility] Address [address] [place] [address] Care Team Providers Care Performance Improvement Manager Name Role Phone Vinay Lawson SHILPI Primary Care Provider [phone] Surgical History Surgery Date Site/Laterality Comments OTHER SURGICAL HISTORY 1998 PROCEDURE: [place] TOTAL ABDOMINAL HYSTERECT W/WO RMVL TUBE OVARY TONSILLECTOMY PROCEDURE: HISTORICAL TONSILLECTOMY COLONOSCOPY 06/05/2008 PROCEDURE: HISTORICAL COLONOSCOPY; COMMENT: normal; repeat in ten years OTHER SURGICAL HISTORY 2003 PROCEDURE: [place] ARTHRD ANT TRANSORL/XTRORAL C1-C2 W/WO EXC ODNTD OTHER SURGICAL HISTORY 2003 PROCEDURE: [place] ARTHRODESIS POSTERIOR INTERBODY 1 [facility] EA ADDL Medical History Medical History Date [...] Procedure Name Priority Date/Time Associated Diagnosis Comments [facility] SCREENING DIGITAL Routine 01/13/2022 10:09 AM EDT Encounter for screening mammogram for malignant neoplasm of breast [facility] DEXA AXIAL SKELETON Routine 09/23/2021 11:48 AM EST Encounter for screening for osteoporosis from Last 3 Months or Most Recently Relevant to Health Maintenance Results * [facility] SCREENING DIGITAL (01/13/2022 10:09 AM EDT) Anatomical Region Laterality Modality Mammography 01/13/2022 8:33 AM EDT Narrative 01/13/2022 10:09 AM EDT [facility] Diagnostic Imaging Department [address] [place] [address] Patient: ??SANTY MCCURDY ?/Age/Sex: 1955 - F Unit#: ??[id number] ? Location/Status: ??SPDIMAM/REG CLI ? Mnemonic/Ordering Site: ??DIGSC/SPMAM Ordering Physician: ??VINAY LAWSON DNP [place] Screening Digital - 01/13/22 - 911 INDICATION: SCREENING COMPARISON: [facility] mammograms dating back to ?? 07/19/2011 TECHNIQUE: CC and MLO views of the breasts were obtained, using full field digital mammography with 3D tomosynthesis views in the MLO projection. Computer aided detection with the [employer] 7.2-H was employed. FINDINGS: The breasts contain [...] date for the next mammogram. (G0202 / [id number]) , ??[id number] Dictating Physician: ??HARMONY LINCOLN MD Electronically Signed by: ??HARMONY LINCOLN MD Dic Date/Time: ??01/13/22 1005 Sign date/Time: ??01/13/22 1009 Procedure Note Harmony Lincoln MD - 07/30/2022 [facility] Diagnostic Imaging Department [address] [place] [address] Patient: SANTY MCCURDY Eri /Age/Sex: 1955 - 66 - F Unit#: [id number] Location/Status: [facility] CLI Mnemonic/Ordering Site: [facility] Ordering Physician: PEDRO,VINAY DNP [place] Screening Digital - 01/13/22 - 911 INDICATION: SCREENING COMPARISON: [facility] mammograms dating back to 07/19/2011 TECHNIQUE: CC and MLO views of the breasts were obtained, using full field digital mammography with 3D tomosynthesis views in the MLO projection. Computer aided detection with the [employer] 7.2-H was employed. FINDINGS: The breasts contain [...] target date for the next mammogram. G0202 [id number]) , [id number] Dictating Physician: HARMONY LINCOLN MD Electronically Signed by: HARMONY LINCOLN MD Dic Date/Time: 01/13/22 1005 Sign date/Time: 01/13/22 1009 us Vinay Lawson RIVET HAMMER MACHINE OPERATOR IMG BI PROCEDURES Final Resul t * [facility] DEXA AXIAL SKELETON (09/23/2021 11:48 AM EST) Anatomical Region Laterality Modality Mammography 09/23/2021 9:52 AM EST Narrative 09/23/2021 11:48 AM EST [facility] Diagnostic Imaging Department [address] [place] [address] Patient: ??SANTY MCCURDY ?/Age/Sex: 1955 - 66 - F Unit#: ??[id number] ? Location/Status: ??SPDIMAM/REG CLI ? Mnemonic/Ordering Site: ??MAMDEXAAX/SPMAM Ordering Physician: ??EVELIO STRAUSS [facility] Dexa Axial Skeleton - 09/23/21 - [address] [facility] Dexa Axial Skeleton INDICATION: POST MENOPAUSE Technique: [...] FRAX estimate if patient has received treatment. [id number] Dictating Physician: ??HARMONY LINCOLN MD Electronically Signed by: ??HARMONY LINCOLN MD Dic Date/Time: ??09/23/21 1146 Sign date/Time: ??09/23/21 1148 Procedure Note Harmony Lincoln MD - 07/30/2022 [facility] Diagnostic Imaging Department [address] [place] [address] Patient: SANTY MCCURDY Eri /Age/Sex: 1955 - 66 - F Unit#: [id number] Location/Status: SPDIMAM/REG CLI Mnemonic/Ordering Site: MAMDEXAAX/SPMAM Ordering Physician: EVELIO STRAUSS [facility] Dexa Axial Skeleton - 09/23/21 - [address] [facility] Dexa Axial Skeleton INDICATION: POST MENOPAUSE Technique: [...] than FRAXestimate if patient has received treatment. [id number] Dictating Physician: HARMONY LINCOLN MD Electronically Signed by: HARMONY LINCOLN MD Dic Date/Time: 09/23/21 1146 Sign date/Time: 09/23/21 1148 us Radiology Results Historical MD MCKEON BI PROCEDURE S Final Result from Last 3 Months or Most Recently Relevant to Health Maintenance Care Teams Performance Improvement Manager Relationship Specialty Start Date End Date Vinay Lawson NP [address] [place] [address] PCP - General 06/30/22
== END 2024-11-30 11:11 | disposition home or self-care (01) ==
LOC: HO.HOSX 11:10
PROVIDERS: Visit Provider Orthopaedic Surgery
DX: M25.511 Pain in right shoulder (principal); M25.311 Other instability, right shoulder
CPT/HCPCS: 73030; 99202

== ENCOUNTER 2024-11-30 12:28 | Outpatient (AMB) | payer MEDICARE, SELFPAY ==
--- NOTE | 2024-11-30 12:36 | MHC.OFFVIS ---
Vital Signs 11/30/24 12:38 Height 5 ft 4 in Weight 167 lb BMI 28.7 Handedness Right Intake Visit Reasons: Right shoulder pain and weakness Intake Note: Isabel is a 69-year-old right hand dominant female who presents with complaints of progressively worsening right shoulder pain and weakness. The patient states that she injured her right shoulder several months ago while lifting a heavy object. Since that time her symptoms have gotten worse. She reports difficulty lifting her right hand above shoulder height. She has tried physical therapy exercises which aggravated her pain. She has failed the last 6 weeks of conservative treatment which has included, Tylenol, anti-inflammatory medicines and a home exercise program. She is not able to tolerate prednisone. She did undergo cervical spine surgery by Dr. Vickers in 2003. Allergies erythromycin base [ERYTHROMYCIN BASE] Allergy (Unknown, Verified 11/30/24 12:39) HIVES acetaminophen [From PERCOCET] Adverse Reaction (Unknown, Verified 11/30/24 12:39) STOMACH UPSET tramadol [TRAMADOL] Adverse Reaction (Unknown, Verified 11/30/24 12:39) NAUSEA & VOMITING From FLEXERIL Adverse Reaction (Unknown, Uncoded 11/30/24 12:39) NAUSEA & VOMITING From PERCOCET Adverse Reaction (Unknown, Uncoded 11/30/24 12:39) STOMACH UPSET Medication List - Last Reconciled 11/30/24 by Humberto Faith MD cholecalciferol (vitamin D3) 50 mcg PO DAILY diltiazem HCl ER (DILT-XR) 180 mg PO DAILY hydrochlorothiazide 25 mg PO DAILY levothyroxine 100 mcg PO QAM metoprolol succinate ER 50 mg PO DAILY omeprazole 40 mg PO DAILY simvastatin 40 mg PO QPM [facility] Surgical History (Updated 09/15/24 @ 10:58 by Viinta Pedro MD) Hx of tonsillectomy History of back surgery Hx of hysterectomy Family History (Updated 09/15/24 @ 10:28 by PATRICIA Solares) Father Heart failure Mother Diabetes Social History (Updated 09/15/24 @ 14:05 by Vinita Pedro MD) Household Members Other:: , 3 adult children (2 live in [place]) works for [employer] Housing: House Patient Tobacco Use Status: Former Tobacco user (16 years ago) e-Cigarette/Vaping Use: Never Used service: No Current occupational status: employed Cognitive needs: No Hearing needs: No Vision needs: Yes Physical Exam Vital Signs: BMI result Body Mass Index 28.7 Const Other: Well-nourished well-developed very friendly female awake alert and oriented x3 in no acute distress Extrem Other: Bilateral upper extremity examination shows good capillary refill, no skin lesions noted, normal sensation light touch Right shoulder examination shows slightly decreased range of motion when compared to her left shoulder, 4+ out of 5 strength with supraspinatus testing, positive impingement signs, tenderness over her acromioclavicular joint, no instability Results Reviewed Results Reviewed: X-rays of the patient's right shoulder taken today show severe acromioclavicular joint narrowing, a type 3 acromion, no acute bony abnormalities Assessment & Plan Assessment & Plan (1) Rotator cuff insufficiency of right shoulder: Code(s): M25.311 - Other instability, right shoulder Category: Medical Plan Ms. Alonzo presents with right shoulder pain and weakness due to impingement syndrome and possible rotator cuff tearing. Thus, I will send the patient for an MRI of her right shoulder for further evaluation. I will see her back once the MRI is completed to discuss the findings and treatment options. She will continue with her [id number] exercises in the meantime to prevent stiffness. I spent 22 minutes in reviewing the patient's records and imaging studies, seeing the patient and documenting in the medical record. Orders: Orders XR shoulder RT min 2V Today M25.511 - Pain in right shoulder MR shoulder RT wo con Today M25.311 - Other instability, right shoulder Coding Level of Care Code New Pt Level 3 (85077) Complex EM visit Add On G2211 Diagnoses Rotator cuff insufficiency of right shoulder M25.311
[2024-11-30 12:38] VITALS: BMI 28.7
--- OUTSIDE RECORDS SUMMARY | 2024-11-30 14:42 | XMS_ITS | Clinical Summary ---
Author Organization [facility] Address [address] [place] [address] Care Team Providers Care Plant Operations Worker Name Role Phone Vinay Lawson SHILPI Primary Care Provider [phone] Surgical History Surgery Date Site/Laterality Comments OTHER SURGICAL HISTORY 1998 PROCEDURE: [place] TOTAL ABDOMINAL HYSTERECT W/WO RMVL TUBE OVARY TONSILLECTOMY PROCEDURE: HISTORICAL TONSILLECTOMY COLONOSCOPY 06/05/2008 PROCEDURE: HISTORICAL COLONOSCOPY; COMMENT: normal; repeat in ten years OTHER SURGICAL HISTORY 2003 PROCEDURE: [place] ARTHRD ANT TRANSORL/XTRORAL C1-C2 W/WO EXC ODNTD OTHER SURGICAL HISTORY 2003 PROCEDURE: [place] ARTHRODESIS POSTERIOR INTERBODY 1 [facility] EA ADDL Medical History Medical History [...] Vaccines (1 of 2) 02/10/2004 RSV Immunization Adult Patients (1 - Risk 60-74 years 1-dose series) [...] - 2023-2 5 season) 2024 Influenza Vaccine (Season Ended) 2025 Osteoporosis Screening (Bone Density Screening) 09/23/2031 09/23/2021 [...] age to complete this topic Meningococcal B Vaccine Aged Out No l onger eligible based on patient's age to complete this topic RSV Immunization Patients Under 20 months Aged Out No longer eligible b ased on patient's age to complete this topic Varicella Vaccines Aged Out No longer eligible based on patient's age to complete this topic Procedures Procedure Name Priority Date/Time Associated Diagnosis Comments [facility] SCREENING DIGITAL Routine 01/13/2022 10:09 AM EDT Encounter for screening mammogram for malignant neoplasm of breast [facility] DEXA AXIAL SKELETON Routine 09/23/2021 11:48 AM EST Encounter for screening for osteoporosis from Last 3 Months or Most Recently Relevant to Health Maintenance Results * [facility] SCREENING DIGITAL (01/13/2022 10:09 AM EDT) Anatomical Region Laterality Modality Mammography 01/13/2022 8:33 AM EDT Narrative 01/13/2022 10:[address] [facility] Diagnostic Imaging Department [address] [place] [address] Patient: ??SANTY MCCURDY ?/Age/Sex: 1955 - F Unit#: ??[id number] ? Location/Status: ??SPDIMAM/REG CLI ? Mnemonic/Ordering Site: ??DIGSC/SPMAM Ordering Physician: ??VINAY LAWSON DNP [place] Screening Digital - 01/13/22 - 911 INDICATION: SCREENING COMPARISON: [facility] mammograms dating back to ?? 07/19/2011 TECHNIQUE: CC and MLO views of the breasts were obtained, using full field digital mammography with 3D tomosynthesis views in the MLO projection. Computer aided detection with the [employer] 7.2-H was employed. FINDINGS: The breasts contain [...] date for the next mammogram. (G0202 / [id number]) , ??[id number] Dictating Physician: ??HARMONY LINCOLN MD Electronically Signed by: ??HARMONY LINCOLN MD Dic Date/Time: ??01/13/22 1005 Sign date/Time: ??01/13/22 1009 Procedure Note Harmony Lincoln MD - 07/30/2022 [facility] Diagnostic Imaging Department [address] [place] [address] Patient: SANTY MCCURDY Eri /Age/Sex: 1955 - 66 - F Unit#: [id number] Location/Status: [facility] CLI Mnemonic/Ordering Site: [facility] Ordering Physician: PEDRO,VINAY DNP [place] Screening Digital - 01/13/22 - 911 INDICATION: SCREENING COMPARISON: [facility] mammograms dating back to 07/19/2011 TECHNIQUE: CC and MLO views of the breasts were obtained, using full field digital mammography with 3D tomosynthesis views in the MLO projection. Computer aided detection with the [employer] 7.2-H was employed. FINDINGS: The breasts contain [...] a target date for the next mammogram. G0202 80276) , [id number] Dictating Physician: HARMONY LINCOLN MD Electronically Signed by: HARMONY LINCOLN MD Dic Date/Time: 01/13/22 1005 Sign date/Time: 01/13/22 1009 us Vinay Lawson DISH TECHNICIAN IMG BI PROCEDURES Final Resul t * [facility] DEXA AXIAL SKELETON (09/23/2021 11:48 AM EST) Anatomical Region Laterality Modality Mammography 09/23/2021 9:52 AM EST Narrative 09/23/2021 11:[address] [facility] Diagnostic Imaging Department [address] [place] [address] Patient: ??SANTY MCCURDY ?/Age/Sex: 1955 - 66 - F Unit#: ??[id number] ? Location/Status: ??SPDIMAM/REG CLI ? Mnemonic/Ordering Site: ??MAMDEXAAX/SPMAM Ordering Physician: ??EVELIO STRAUSS [facility] Dexa Axial Skeleton - 09/23/21 - 1030 [facility] Dexa Axial Skeleton INDICATION: POST MENOPAUSE [...] FRAX estimate if patient has received treatment. [id number] Dictating Physician: ??HARMONY LINCOLN MD Electronically Signed by: ??HARMONY LINCOLN MD Dic Date/Time: ??09/23/21 1146 Sign date/Time: ??09/23/21 1148 Procedure Note Harmony Lincoln MD - 07/30/2022 [facility] Diagnostic Imaging Department [address] [place] [address] Patient: SANTY MCCURDY Eri /Age/Sex: 1955 - 66 - F Unit#: [id number] Location/Status: SPDIMAM/REG CLI Mnemonic/Ordering Site: MAMDEXAAX/SPMAM Ordering Physician: EVELIO STRAUSS [facility] Dexa Axial Skeleton - 09/23/21 - 1030 [facility] Dexa Axial Skeleton INDICATION: POST MENOPAUSE [...] than FRAXestimate if patient has received treatment. [id number] Dictating Physician: HARMONY LINCOLN MD Electronically Signed by: HARMONY LINCOLN MD Dic Date/Time: 09/23/21 1146 Sign date/Time: 09/23/21 1148 us Radiology Results Historical MD CMKEON BI PROCEDURE S Final Result from Last 3 Months or Most Recently Relevant to Health Maintenance Care Teams Plant Operations Worker Relationship Specialty Start Date End Date Vinay Lawson NP [address] [place] [address] PCP - General 06/30/22
== END 2024-11-30 12:53 | disposition home or self-care (01) ==
LOC: HO.HOS 12:28
PROVIDERS: Visit Provider Orthopaedic Surgery
DX: M25.311 Other instability, right shoulder (principal)
CPT/HCPCS: 99203; G2211

== ENCOUNTER → 2024-11-30 12:32 | Outpatient (BNV) | payer MEDICARE, SELFPAY | PROVIDERS: Visit Provider Radiology Diagnostic Radiology | DX: M25.511 Pain in right shoulder (principal) | CPT/HCPCS: 73030 ==

== ENCOUNTER 2024-12-06 17:38 | Outpatient (REF) | payer MEDICARE, SELFPAY ==
--- OUTSIDE RECORDS SUMMARY | 2024-12-06 18:45 | XMS_ITS | Clinical Summary ---
Author Organization [facility] Address [address] [place] [address] Care Team Providers Care Rotary Drill Operator Name Role Phone Vinay Lawson SHILPI Primary Care Provider [phone] Surgical History Surgery Date Site/Laterality Comments OTHER SURGICAL HISTORY 1998 PROCEDURE: [place] TOTAL ABDOMINAL HYSTERECT W/WO RMVL TUBE OVARY TONSILLECTOMY PROCEDURE: HISTORICAL TONSILLECTOMY COLONOSCOPY 06/05/2008 PROCEDURE: HISTORICAL COLONOSCOPY; COMMENT: normal; repeat in ten years OTHER SURGICAL HISTORY 2003 PROCEDURE: [place] ARTHRD ANT TRANSORL/XTRORAL C1-C2 W/WO EXC ODNTD OTHER SURGICAL HISTORY 2003 PROCEDURE: [place] ARTHRODESIS POSTERIOR INTERBODY 1 [facility] EA ADDL Medical History Medical History [...] Procedure Name Priority Date/Time Associated Diagnosis Comments [facility] SCREENING DIGITAL Routine 01/13/2022 10:09 AM EDT Encounter for screening mammogram for malignant neoplasm of breast [facility] DEXA AXIAL SKELETON Routine 09/23/2021 11:48 AM EST Encounter for screening for osteoporosis from Last 3 Months or Most Recently Relevant to Health Maintenance Results * [facility] SCREENING DIGITAL (01/13/2022 10:09 AM EDT) Anatomical Region Laterality Modality Mammography 01/13/2022 8:33 AM EDT Narrative 01/13/2022 10:09 AM EDT [facility] Diagnostic Imaging Department [address] [place] [address] Patient: ??SANTY MCCURDY ?/Age/Sex: 1955 - F Unit#: ??[id number] ? Location/Status: ??SPDIMAM/REG CLI ? Mnemonic/Ordering Site: ??DIGSC/SPMAM Ordering Physician: ??VINAY LAWSON DNP [place] Screening Digital - 01/13/22 - 911 INDICATION: SCREENING COMPARISON: [facility] mammograms dating back to ?? 07/19/2011 TECHNIQUE: CC and MLO views of the breasts were obtained, using full field digital mammography with 3D tomosynthesis views in the MLO projection. Computer aided detection with the [employer] 7.2-H was employed. FINDINGS: The breasts contain [...] date for the next mammogram. (G0202 / [id number]) , ??[id number] Dictating Physician: ??HARMONY LINCOLN MD Electronically Signed by: ??HARMONY LINCOLN MD Dic Date/Time: ??01/13/22 1005 Sign date/Time: ??01/13/22 1009 Procedure Note Harmony Lincoln MD - 07/30/2022 [facility] Diagnostic Imaging Department [address] [place] [address] Patient: SANTY MCCURDY Eri /Age/Sex: 1955 - 66 - F Unit#: [id number] Location/Status: [facility] CLI Mnemonic/Ordering Site: [facility] Ordering Physician: PEDRO,VINAY DNP [place] Screening Digital - 01/13/22 - 911 INDICATION: SCREENING COMPARISON: [facility] mammograms dating back to 07/19/2011 TECHNIQUE: CC and MLO views of the breasts were obtained, using full field digital mammography with 3D tomosynthesis views in the MLO projection. Computer aided detection with the [employer] 7.2-H was employed. FINDINGS: The breasts contain [...] target date for the next mammogram. G0202 [id number]) , [id number] Dictating Physician: HARMONY LINCOLN MD Electronically Signed by: HARMONY LINOCLN MD Dic Date/Time: 01/13/22 1005 Sign date/Time: 01/13/22 1009 us Vinay Lawson BUSINESS REPRESENTATIVE IMG BI PROCEDURES Final Resul t * [facility] DEXA AXIAL SKELETON (09/23/2021 11:48 AM EST) Anatomical Region Laterality Modality Mammography 09/23/2021 9:52 AM EST Narrative 09/23/2021 11:48 AM EST [facility] Diagnostic Imaging Department [address] [place] [address] Patient: ??SANTY MCCURDY ?/Age/Sex: 1955 - 66 - F Unit#: ??[id number] ? Location/Status: ??SPDIMAM/REG CLI ? Mnemonic/Ordering Site: ??MAMDEXAAX/SPMAM Ordering Physician: ??EVELIO STRAUSS [facility] Dexa Axial Skeleton - 09/23/21 - 1030 [facility] Dexa Axial Skeleton INDICATION: POST MENOPAUSE [...] FRAX estimate if patient has received treatment. [id number] Dictating Physician: ??HARMONY LINCOLN MD Electronically Signed by: ??HARMONY LINCOLN MD Dic Date/Time: ??09/23/21 1146 Sign date/Time: ??09/23/21 1148 Procedure Note Harmony Lincoln MD - 07/30/2022 [facility] Diagnostic Imaging Department [address] [place] [address] Patient: SANTY MCCURDY Eri /Age/Sex: 1955 - 66 - F Unit#: [id number] Location/Status: SPDIMAM/REG CLI Mnemonic/Ordering Site: MAMDEXAAX/SPMAM Ordering Physician: EVELIO STRAUSS [facility] Dexa Axial Skeleton - 09/23/21 - 1030 [facility] Dexa Axial Skeleton INDICATION: POST MENOPAUSE [...] than FRAXestimate if patient has received treatment. [id number] Dictating Physician: HARMONY LINCOLN MD Electronically Signed by: HARMONY LINCOLN MD Dic Date/Time: 09/23/21 1146 Sign date/Time: 09/23/21 1148 us Radiology Results Historical MD MCKEON BI PROCEDURE S Final Result from Last 3 Months or Most Recently Relevant to Health Maintenance Care Teams Rotary Drill Operator Relationship Specialty Start Date End Date Vinay Lawson NP [address] [place] [address] PCP - General 06/30/22
== END 2024-12-06 17:39 | disposition home or self-care (01) ==
LOC: HO.MRI 17:38
PROVIDERS: PCP Internal Medicine; Visit Provider Orthopaedic Surgery
DX: M25.311 Other instability, right shoulder (principal)
CPT/HCPCS: 73221

== ENCOUNTER → 2024-12-06 17:38 | Outpatient (BNV) | payer MEDICARE, SELFPAY | PROVIDERS: PCP Internal Medicine; Visit Provider Radiology Diagnostic Radiology | DX: M75.121 Complete rotator cuff tear or rupture of right shoulder, not specified as traumatic (principal) | CPT/HCPCS: 73221 ==

== ENCOUNTER 2024-12-29 15:00 | Outpatient (AMB) | payer MEDICARE, SELFPAY ==
--- OUTSIDE RECORDS SUMMARY | 2024-12-29 15:02 | XMS_ITS | Clinical Summary ---
Author Organization [facility] Address [address] [place] [address] Care Team Providers Care Digital Account Executive Name Role Phone Vinay Lawson SHILPI Primary Care Provider [phone] Surgical History Surgery Date Site/Laterality Comments OTHER SURGICAL HISTORY 1998 PROCEDURE: [place] TOTAL ABDOMINAL HYSTERECT W/WO RMVL TUBE OVARY TONSILLECTOMY PROCEDURE: HISTORICAL TONSILLECTOMY COLONOSCOPY 06/05/2008 PROCEDURE: HISTORICAL COLONOSCOPY; COMMENT: normal; repeat in ten years OTHER SURGICAL HISTORY 2003 PROCEDURE: [place] ARTHRD ANT TRANSORL/XTRORAL C1-C2 W/WO EXC ODNTD OTHER SURGICAL HISTORY 2003 PROCEDURE: [place] ARTHRODESIS POSTERIOR INTERBODY 1 [facility] EA ADDL Medical History Medical History [...] Procedure Name Priority Date/Time Associated Diagnosis Comments [facility] SCREENING DIGITAL Routine 01/13/2022 10:09 AM EDT Encounter for screening mammogram for malignant neoplasm of breast [facility] DEXA AXIAL SKELETON Routine 09/23/2021 11:48 AM EST Encounter for screening for osteoporosis from Last 3 Months or Most Recently Relevant to Health Maintenance Results * [facility] SCREENING DIGITAL (01/13/2022 10:09 AM EDT) Anatomical Region Laterality Modality Mammography 01/13/2022 8:33 AM EDT Narrative 01/13/2022 10:09 AM EDT [facility] Diagnostic Imaging Department [address] [place] [address] Patient: ??SANTY MCCURDY ?/Age/Sex: 1955 - F Unit#: ??[id number] ? Location/Status: ??SPDIMAM/REG CLI ? Mnemonic/Ordering Site: ??DIGSC/SPMAM Ordering Physician: ??VINAY LAWSON DNP [place] Screening Digital - 01/13/22 - 911 INDICATION: SCREENING COMPARISON: [facility] mammograms dating back to ?? 07/19/2011 TECHNIQUE: CC and MLO views of the breasts were obtained, using full field digital mammography with 3D tomosynthesis views in the MLO projection. Computer aided detection with the Overhead[employer]fm 7.2-H was employed. FINDINGS: The breasts contain [...] date for the next mammogram. (G0202 / [id number]) , ??[id number] Dictating Physician: ??HARMONY LINCOLN MD Electronically Signed by: ??HARMONY LINCOLN MD Dic Date/Time: ??01/13/22 1005 Sign date/Time: ??01/13/22 1009 Procedure Note Harmony Lincoln MD - 07/30/2022 [facility] Diagnostic Imaging Department [address] [place] [address] Patient: SANTY MCCURDY Eri /Age/Sex: 1955 - 66 - F Unit#: [id number] Location/Status: [facility] CLI Mnemonic/Ordering Site: [facility] Ordering Physician: PEDRO,VINAY DNP [place] Screening Digital - 01/13/22 - 911 INDICATION: SCREENING COMPARISON: [facility] mammograms dating back to 07/19/2011 TECHNIQUE: CC and MLO views of the breasts were obtained, using full field digital mammography with 3D tomosynthesis views in the MLO projection. Computer aided detection with the Overhead[employer]fm 7.2-H was employed. FINDINGS: The breasts contain [...] target date for the next mammogram. G0202 [id number]) , [id number] Dictating Physician: HARMONY LINCOLN MD Electronically Signed by: HARMONY LINCOLN MD Dic Date/Time: 01/13/22 1005 Sign date/Time: 01/13/22 1009 us Vinay Lawson PICK REMOVER IMG BI PROCEDURES Final Resul t * [facility] DEXA AXIAL SKELETON (09/23/2021 11:48 AM EST) Anatomical Region Laterality Modality Mammography 09/23/2021 9:52 AM EST Narrative 09/23/2021 11:48 AM EST [facility] Diagnostic Imaging Department [address] [place] [address] Patient: ??SANTY MCCURDY ?/Age/Sex: 1955 - 66 - F Unit#: ??[id number] ? Location/Status: ??SPDIMAM/REG CLI ? Mnemonic/Ordering Site: ??MAMDEXAAX/SPMAM Ordering Physician: ??EVELIO STRAUSS [facility] Dexa Axial Skeleton - 09/23/21 - 1030 [facility] Dexa Axial Skeleton INDICATION: POST MENOPAUSE Technique: [...] FRAX estimate if patient has received treatment. [id number] Dictating Physician: ??HARMONY LINCOLN MD Electronically Signed by: ??HARMONY LINCOLN MD Dic Date/Time: ??09/23/21 1146 Sign date/Time: ??09/23/21 1148 Procedure Note Harmony Lincoln MD - 07/30/2022 [facility] Diagnostic Imaging Department [address] [place] [address] Patient: SANTY MCCURDY Eri /Age/Sex: 1955 - 66 - F Unit#: [id number] Location/Status: SPDIMAM/REG CLI Mnemonic/Ordering Site: MAMDEXAAX/SPMAM Ordering Physician: EVELIO STRAUSS [facility] Dexa Axial Skeleton - 09/23/21 - 1030 [facility] Dexa Axial Skeleton INDICATION: POST MENOPAUSE Technique: [...] than FRAXestimate if patient has received treatment. [id number] Dictating Physician: HARMONY LINCOLN MD Electronically Signed by: HARMONY LINCOLN MD Dic Date/Time: 09/23/21 1146 Sign date/Time: 09/23/21 1148 us Radiology Results Historical MD MCKEON BI PROCEDURE S Final Result from Last 3 Months or Most Recently Relevant to Health Maintenance Care Teams Digital Account Executive Relationship Specialty Start Date End Date Vinay Lawson NP [address] [place] [address] PCP - General 06/30/22
--- NOTE | 2024-12-29 15:08 | MHC.OFFVIS ---
Vital Signs 12/29/24 15:12 Height 5 ft 4 in Weight 167 lb BMI 28.7 Intake Visit Reasons: Right shoulder pain and weakness Intake Note: Isabel is a 69-year-old right hand dominant female who presents with complaints of progressively worsening right shoulder pain and weakness. The patient states that she injured her right shoulder several months ago while lifting a heavy object. Since that time her symptoms have gotten worse. She reports difficulty lifting her right hand above shoulder height. She has tried physical therapy exercises which aggravated her pain. She has failed the last 6 weeks of conservative treatment which has included, Tylenol, anti-inflammatory medicines and a home exercise program. She is not able to tolerate prednisone. She did undergo cervical spine surgery by Dr. Vickers in 2003. Allergies erythromycin base [ERYTHROMYCIN BASE] Allergy (Unknown, Verified 12/29/24 15:12) HIVES acetaminophen [From PERCOCET] Adverse Reaction (Unknown, Verified 12/29/24 15:12) STOMACH UPSET tramadol [TRAMADOL] Adverse Reaction (Unknown, Verified 12/29/24 15:12) NAUSEA & VOMITING From FLEXERIL Adverse Reaction (Unknown, Uncoded 12/29/24 15:12) NAUSEA & VOMITING From PERCOCET Adverse Reaction (Unknown, Uncoded 12/29/24 15:12) STOMACH UPSET Medication List - Last Reconciled 12/29/24 by Humberto Faith MD cholecalciferol (vitamin D3) 50 mcg PO DAILY diltiazem HCl ER (DILT-XR) 180 mg PO DAILY hydrochlorothiazide 25 mg PO DAILY levothyroxine 100 mcg PO QAM metoprolol succinate ER 50 mg PO DAILY omeprazole 40 mg PO DAILY simvastatin 40 mg PO QPM [facility] Surgical History Hx of tonsillectomy History of back surgery Hx of hysterectomy Family History Father Heart failure Mother Diabetes Social History Household Members Other:: , 3 adult children (2 live in [place]) works for [employer] Housing: House Patient Tobacco Use Status: Former Tobacco user (16 years ago) e-Cigarette/Vaping Use: Never Used service: No Current occupational status: employed Current occupation: rt handed Cognitive needs: No Hearing needs: No Vision needs: Yes Physical Exam Vital Signs: BMI result Body Mass Index 28.7 Const Other: Well-nourished well-developed very friendly female awake alert and oriented x3 in no acute distress Extrem Other: Bilateral upper extremity examination shows good capillary refill, no skin lesions noted, normal sensation light touch Right shoulder examination shows slightly decreased range of motion when compared to her left shoulder, 4/5 strength with supraspinatus testing, positive impingement signs, tenderness over her acromioclavicular joint, no instability Results Reviewed Results Reviewed: MRI of the patient's right shoulder show severe acromioclavicular joint narrowing, a type 2 acromion, a full-thickness tear of the supraspinatus tendon Assessment & Plan Assessment & Plan (1) Rotator cuff insufficiency of right shoulder: Code(s): M25.311 - Other instability, right shoulder Category: Medical Plan Ms. Alonzo presents with right shoulder pain and weakness due to impingement syndrome, acromioclavicular joint arthritis and a small full-thickness rotator cuff tear. I had a lengthy discussion with the patient regarding the treatment options. At this point she has failed continued non operative treatments. The risks and benefits of right shoulder surgery were discussed at length with the patient. The patient wishes to proceed with surgery. Surgery will involve right shoulder arthroscopic distal clavicle excision, right shoulder arthroscopic acromioplasty and right shoulder mini open rotator cuff repair. The patient will be scheduled for next available date. She will follow-up as instructed. Feel free to call me at any time should questions regarding her orthopedic management arise. I spent 20 minutes in reviewing the patient's records and imaging studies, seeing the patient and documenting in the medical record. Coding Level of Care Code Est Pt Level 3 (47566) Complex EM visit Add On G2211 Diagnoses Rotator cuff insufficiency of right shoulder M25.311
[2024-12-29 15:12] VITALS: BMI 28.7
== END 2024-12-29 15:25 | disposition home or self-care (01) ==
LOC: HO.HOS 15:00
PROVIDERS: PCP Internal Medicine; Visit Provider Orthopaedic Surgery
DX: M25.311 Other instability, right shoulder (principal)
CPT/HCPCS: 99213; G2211

== ENCOUNTER → 2024-12-29 15:00 | Outpatient (BNVA) | payer MEDICARE, SELFPAY | PROVIDERS: PCP Internal Medicine; Visit Provider Orthopaedic Surgery | DX: M25.311 Other instability, right shoulder (principal) | CPT/HCPCS: 99212 ==

== ENCOUNTER 2025-02-17 07:54 | Day surgery (SDC) | payer MEDICARE, SELFPAY ==
--- OUTSIDE RECORDS SUMMARY | 2024-12-30 11:29 | XMS_ITS | Clinical Summary ---
Author Organization [facility] Address [address] [place] [address] Care Team Providers Care Family Engagement Specialist Name Role Phone Vinay Lawson SHILPI Primary Care Provider [phone] Surgical History Surgery Date Site/Laterality Comments OTHER SURGICAL HISTORY 1998 PROCEDURE: [place] TOTAL ABDOMINAL HYSTERECT W/WO RMVL TUBE OVARY TONSILLECTOMY PROCEDURE: HISTORICAL TONSILLECTOMY COLONOSCOPY 06/05/2008 PROCEDURE: HISTORICAL COLONOSCOPY; COMMENT: normal; repeat in ten years OTHER SURGICAL HISTORY 2003 PROCEDURE: [place] ARTHRD ANT TRANSORL/XTRORAL C1-C2 W/WO EXC ODNTD OTHER SURGICAL HISTORY 2003 PROCEDURE: [place] ARTHRODESIS POSTERIOR INTERBODY 1 [facility] EA ADDL Medical History Medical History [...] Procedure Name Priority Date/Time Associated Diagnosis Comments [facility] SCREENING DIGITAL Routine 01/13/2022 10:09 AM EDT Encounter for screening mammogram for malignant neoplasm of breast [facility] DEXA AXIAL SKELETON Routine 09/23/2021 11:48 AM EST Encounter for screening for osteoporosis from Last 3 Months or Most Recently Relevant to Health Maintenance Results * [facility] SCREENING DIGITAL (01/13/2022 10:09 AM EDT) Anatomical Region Laterality Modality Mammography 01/13/2022 8:33 AM EDT Narrative 01/13/2022 10:09 AM EDT [facility] Diagnostic Imaging Department [address] [place] [address] Patient: ??SANTY MCCURDY ?/Age/Sex: 1955 - F Unit#: ??[id number] ? Location/Status: ??SPDIMAM/REG CLI ? Mnemonic/Ordering Site: ??DIGSC/SPMAM Ordering Physician: ??VINAY LAWSON DNP [place] Screening Digital - 01/13/22 - 911 INDICATION: SCREENING COMPARISON: [facility] mammograms dating back to ?? 07/19/2011 TECHNIQUE: CC and MLO views of the breasts were obtained, using full field digital mammography with 3D tomosynthesis views in the MLO projection. Computer aided detection with the Dr. Tariff 7.2-H was employed. FINDINGS: The breasts contain [...] date for the next mammogram. (G0202 / [id number]) , ??[id number] Dictating Physician: ??HARMONY LINCOLN MD Electronically Signed by: ??HARMONY LINCOLN MD Dic Date/Time: ??01/13/22 1005 Sign date/Time: ??01/13/22 1009 Procedure Note Harmony Lincoln MD - 07/30/2022 [facility] Diagnostic Imaging Department [address] [place] [address] Patient: SANTY MCCURDY Eri /Age/Sex: 1955 - 66 - F Unit#: [id number] Location/Status: [facility] CLI Mnemonic/Ordering Site: [facility] Ordering Physician: PEDRO,VINAY DNP [place] Screening Digital - 01/13/22 - 911 INDICATION: SCREENING COMPARISON: [facility] mammograms dating back to 07/19/2011 TECHNIQUE: CC and MLO views of the breasts were obtained, using full field digital mammography with 3D tomosynthesis views in the MLO projection. Computer aided detection with the Dr. Tariff 7.2-H was employed. FINDINGS: The breasts contain [...] target date for the next mammogram. G0202 [id number]) , [id number] Dictating Physician: HARMONY LINCOLN MD Electronically Signed by: HARMONY LINCOLN MD Dic Date/Time: 01/13/22 1005 Sign date/Time: 01/13/22 1009 us Vinay Lawson CORPORATE SALES REPRESENTATIVE IMG BI PROCEDURES Final Resul t * [facility] DEXA AXIAL SKELETON (09/23/2021 11:48 AM EST) Anatomical Region Laterality Modality Mammography 09/23/2021 9:52 AM EST Narrative 09/23/2021 11:48 AM EST [facility] Diagnostic Imaging Department [address] [place] [address] Patient: ??SANTY MCCURDY ?/Age/Sex: 1955 - 66 - F Unit#: ??[id number] ? Location/Status: ??SPDIMAM/REG CLI ? Mnemonic/Ordering Site: ??MAMDEXAAX/SPMAM Ordering Physician: ??EVEILO STRAUSS [facility] Dexa Axial Skeleton - 09/23/21 - 1030 [facility] Dexa Axial Skeleton INDICATION: POST MENOPAUSE [...] FRAX estimate if patient has received treatment. [id number] Dictating Physician: ??HARMONY LINCOLN MD Electronically Signed by: ??HARMONY LINCOLN MD Dic Date/Time: ??09/23/21 1146 Sign date/Time: ??09/23/21 1148 Procedure Note Harmony Lincoln MD - 07/30/2022 [facility] Diagnostic Imaging Department [address] [place] [address] Patient: SANTY MCCURDY Eri /Age/Sex: 1955 - 66 - F Unit#: [id number] Location/Status: SPDIMAM/REG CLI Mnemonic/Ordering Site: MAMDEXAAX/SPMAM Ordering Physician: EVELIO STRAUSS [facility] Dexa Axial Skeleton - 09/23/21 - 1030 [facility] Dexa Axial Skeleton INDICATION: POST MENOPAUSE [...] than FRAXestimate if patient has received treatment. [id number] Dictating Physician: HARMONY LINCOLN MD Electronically Signed by: HARMONY LINCOLN MD Dic Date/Time: 09/23/21 1146 Sign date/Time: 09/23/21 1148 us Radiology Results Historical MD MCKEON BI PROCEDURE S Final Result from Last 3 Months or Most Recently Relevant to Health Maintenance Care Teams Family Engagement Specialist Relationship Specialty Start Date End Date Vinay Lawson NP [address] [place] [address] PCP - General 06/30/22
[2025-02-02 13:23] VITALS: BP 149/69; PULSE 55; RESP 20; O2SAT 97; BMI 29.5
[2025-02-17] VITALS (13 sets, daily range): BP systolic 126–152; BP diastolic 57–65; PULSE 53–61; RESP 12–18; TEMP 36.1–36.4; O2SAT 92–97; BMI 29.4
[2025-02-17] MEDS: Lactated Ringers 1,000 ML 100 ML IVCONT (08:21)
--- NOTE | 2025-02-17 09:03 | P.CONAN_ITS ---
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 HTN: BP increased recently with shoulder pain GERD: ppi controls PMFSH Active Problems Active Problems: All Active Problems Rotator cuff insufficiency of right shoulder (Acute) Right shoulder pain (Acute) Rotator cuff (capsule) sprain (Acute) Bicipital tendonitis of right shoulder (Acute) History of mammography, screening (Acute) Hyperlipidemia (Acute) Hypothyroidism (Acute) Colon cancer screening (Acute) Hx of colonoscopy (Acute) HTN (hypertension) (Acute) UTI (urinary tract infection) (Acute) Past Medical History Medical History (Updated 02/02/25 @ 13:17 by Glenna Hooker RN) DDD (degenerative disc disease), cervical Arthritis Peptic ulcer GERD (gastroesophageal reflux disease) Seizures Hyperlipidemia Hypothyroid HTN (hypertension) Family History Family History Father Heart failure Mother Diabetes Family history of problems with anesthesia: No Surgical History Surgical History (Updated 02/02/25 @ 13:18 by Glenna Hooker RN) History of esophagogastroduodenoscopy (EGD) H/O colonoscopy Hx of tonsillectomy History of back surgery Hx of hysterectomy History of Problems with Anesthesia: No Social History Social History Household Members Other:: , 3 adult children (2 live in [place]) works for [employer] Housing: House Are you a primary home care administrator to a significant other at home: No Do you presently have visiting nurse or other home services: No Patient Tobacco Use Status: Former Tobacco user Tobacco use type: Cigarette Years Smoked: 41 e-Cigarette/Vaping Use: Never Used Use of substances other than those prescribed or required for medical reasons: No Have you been hit, kicked, punched, or otherwise hurt by someone within the past year? If so, by whom?: No Spiritual Healthcare Practices: no Adventism Healthcare Practices: no Cultural Healthcare Practices: no Are you DNR?: No Advance Directives Information Provided: Yes (as above noted) Advance Directives on File: No FDLMP: n/a Poor oral hygiene: No (upper full denture/some missing teeth lower) service: No Current occupational status: employed Current occupation: rt handed Cognitive needs: No Hearing needs: No Vision needs: Yes Meds Allergies Allergy/AdvReac Type Severity Reaction Status Date / Time erythromycin base Allergy Intermediate HIVES Verified 02/01/25 13:12 (ERYTHROMYCIN BASE) oxycodone AdvReac Severe projectile Verified 02/02/25 13:21 vomiting cyclobenzaprine (From AdvReac Intermediate Nausea Verified 02/02/25 13:21 Flexeril) tramadol (TRAMADOL) AdvReac Intermediate NAUSEA & Verified 02/01/25 13:12 VOMITING Home Medications ?Medication ?Instructions ?Recorded ?Confirmed ?Last Taken ?Type cholecalciferol (vitamin D3) 50 50 mcg PO QAM 11/30/24 02/17/25 Unknown History mcg (2,000 unit) capsule diltiazem HCl 180 mg 180 mg PO BEDTIME 02/02/25 0 02/17/25 Unknown History capsule,extended release 24 hr, controlled (DILT-XR) hydrochlorothiazide 25 mg tablet 25 mg PO QAM 02/02/25 02/17/25 Unknown History metoprolol succinate 50 mg 50 mg PO QAM 02/02/2502/1702/17/25 History tablet,extended release 24 hr omeprazole 40 mg capsule,delayed 40 mg PO QAM 02/02/25 02/17/25 02/17/25 History release Exam Height,Weight and Vital Signs: Vital Signs Pulse Rate 55 02/02/25 13:23 Respiratory Rate 20 02/02/25 13:23 Blood Pressure 149/69 H 02/02/25 13:23 Pulse Oximetry 97 02/02/25 13:23 Oxygen Delivery Method Room Air 02/02/25 13:23 Pertinent Lab Results Pertinent Lab Results: Laboratory Tests 09/15/24 11:18 WBC 7.0 Hgb 15.2 Hct 46.7 Plt Count 262 Sodium 139 Potassium 4.5 Chloride 102 Carbon Dioxide 29 BUN 20 H Creatinine 0.87 Airway Mallampati Class: II (small mouth) TM Dist: >3cm Neck ROM: Full (s/p cspine surgery) Denture: Upper Loose/Missing/Broken Teeth: Yes (missing lower) Heart: RRR Lungs: CTAB Assessment and Plan Assessment Anesthesia Assessment: Anesthesia Plan Discussed and PAT Visit Final Anesthetic Review Family History of Problems with Anesthesia: No History of Problems with Anesthesia: No Documented by User: Debbie Josue DO 02/17/25 09:05 [facility] Past Medical History Medical History (Updated 02/02/25 @ 13:17 by Glenna Hooker RN) DDD (degenerative disc disease), cervical Arthritis Peptic ulcer GERD (gastroesophageal reflux disease) Seizures Hyperlipidemia Hypothyroid HTN (hypertension) Family History Family History Father Heart failure Mother Diabetes Family history of problems with anesthesia: No Surgical History Surgical History (Updated 02/02/25 @ 13:18 by Glenna Hooker RN) History of esophagogastroduodenoscopy (EGD) H/O colonoscopy Hx of tonsillectomy History of back surgery Hx of hysterectomy History of Problems with Anesthesia: No Social History Social History Household Members Other:: , 3 adult children (2 live in [place]) works for [employer] Housing: House Are you a primary home care administrator to a significant other at home: No Do you presently have visiting nurse or other home services: No Patient Tobacco Use Status: Former Tobacco user Tobacco use type: Cigarette Years Smoked: 41 e-Cigarette/Vaping Use: Never Used Use of substances other than those prescribed or required for medical reasons: No Have you been hit, kicked, punched, or otherwise hurt by someone within the past year? If so, by whom?: No Spiritual Healthcare Practices: no Adventism Healthcare Practices: no Cultural Healthcare Practices: no Are you DNR?: No Advance Directives Information Provided: Yes (as above noted) Advance Directives on File: No FDLMP: n/a Poor oral hygiene: No (upper full denture/some missing teeth lower) service: No Current occupational status: employed Current occupation: rt handed Cognitive needs: No Hearing needs: No Vision needs: Yes Meds Allergies Allergy/AdvReac Type Severity Reaction Status Date / Time erythromycin base Allergy Intermediate HIVES Verified 02/01/25 13:12 (ERYTHROMYCIN BASE) oxycodone AdvReac Severe projectile Verified 02/02/25 13:21 vomiting cyclobenzaprine (From AdvReac Intermediate Nausea Verified 02/02/25 13:21 Flexeril) tramadol (TRAMADOL) AdvReac Intermediate NAUSEA & Verified 02/01/25 13:12 VOMITING Home Medications ?Medication ?Instructions ?Recorded ?Confirmed ?Last Taken ?Type cholecalciferol (vitamin D3) 50 50 mcg PO QAM 11/30/24 02/17/25 Unknown History mcg (2,000 unit) capsule diltiazem HCl 180 mg 180 mg PO BEDTIME 02/02/25 0 02/17/25 Unknown History capsule,extended release 24 hr, controlled (DILT-XR) hydrochlorothiazide 25 mg tablet 25 mg PO QAM 02/02/25 02/17/25 Unknown History metoprolol succinate 50 mg 50 mg PO QAM 02/02/2502/1702/17/25 History tablet,extended release 24 hr omeprazole 40 mg capsule,delayed 40 mg PO QAM 02/02/25 02/17/25 02/17/25 History release Exam Exam Date and Time: 02/17/25 0900 Airway Mallampati Class: II (small mouth) TM Dist: >3cm Neck ROM: Full Denture: Upper Heart: S1S2 Assessment and Plan Assessment Anesthesia Assessment: Anesthesia Plan Discussed and Chart Reviewed Final Anesthetic Review Family History of Problems with Anesthesia: No History of Problems with Anesthesia: No NPO: Yes ASA Class: II Final Preanesthetic Review: No Changes in Pt Med Stat, Meds/Allgs Chart Reviewed, Consent Obtained/Reviewed and Anes Risks/Benef Reviewed Patient Risk: Low Procedure Risk: Intermediate Anesthetic Plan Anesthetic Plan: GA, Regional Block (right brachial plexus block) and Agree w/ Assess. and Plan Disposition: Standard PACU
--- NOTE | 2025-02-17 11:44 | PM.OP ---
Brief Operative Note Date of Service: 02/17/25 Pre-op diagnosis: Right shoulder impingement syndrome, right shoulder acromioclavicular joint arthritis, right shoulder rotator cuff tear Post-op diagnosis: same Procedure: Right shoulder arthroscopic distal clavicle excision, right shoulder arthroscopic acromioplasty, right shoulder mini open rotator cuff repair Implants: 1 suture anchor (Espinal and Nephew Twinfix anchor with #2 Ultrabraid suture) Surgeon: Humberto Faith MD Anesthesia: GETA and regional Was an Field Assembly Supervisor used for this Procedure?: No Estimated blood loss (mL): 10 Pathology: none sent Condition: stable Disposition: PACU
--- NOTE | 2025-02-17 11:45 | P.OP_ITS ---
Operative Note Operative Note Date of Service: 02/17/25 Narrative: After the patient was identified as Isabel Alonzo and her right shoulder was initialed by myself the patient was brought to the holding area where a right shoulder interscalene regional block was performed by the anesthesiologist in routine fashion. The patient was then brought to the operating room where general anesthesia was induced by the anesthesiologist in routine fashion. The patient was given 2 g of IV Ancef preoperatively for infection prophylaxis. Examination under anesthesia of the patient's right shoulder showed full passive range of motion of the patient's right shoulder when compared to the left. The patient was gently positioned in the beach chair position with all bony prominences well padded. The patient's right shoulder region and upper extremity were prepped and draped in sterile fashion. A formal time-out was completed. A #11 scalpel blade was used to make a posterior portal 2 cm inferior and 1 cm medial to the posterolateral corner of the acromion. Blunt trocar technique was used to enter the glenohumeral joint in routine fashion. An anterior portal was made just lateral to the coracoid process after proper positioning was confirmed using a spinal needle. Diagnostic arthroscopy showed minimal degenerative changes of the glenoid and humeral head articular surfaces. There was a full-thickness tear of the supraspinatus tendon. There was no evidence of injury to the biceps tendon or its insertion onto the glenoid. There was no inflammation of the anterior joint capsule. The arthroscope was then placed from the posterior portal into the subacromial space. A lateral portal was made 2 fingerbreadths lateral to the anterior lateral corner of the acromion. The ArthroCare Wand was used to ablate soft tissues along the undersurface of the acromion as well as to excise the coracoacromial ligament. There was a sharp spur along the undersurface of the acromion which was removed using the hooded bur. The arthroscope was then placed into the lateral portal and the acromioplasty was completed with the bur in the posterior portal using the posterior aspect of the acromion as a cutting block. The ArthroCare Wand was then brought in through the anterior portal and was used to ablate soft tissues along the acromioclavicular joint and distal clavicle. The posterior and superior ligamentous structures were left intact. A distal clavicle excision of 8 mm was performed using the hooded bur. Any remaining bursal tissue was removed using the arthroscopic shaver. The subacromial space was irrigated and then drained. All arthroscopic instruments were removed. Sterile gloves were changed and the shoulder was once again prepped with Betadine. A #15 scalpel blade was used to extend the lateral portal to the lateral edge of the acromion. The subacromial tissues were dissected using electrocautery down to the superficial deltoid fascia. The trocar split in the anterior raphe of the deltoid was then extended to the lateral edge of the acromion using elect rocautery and curved Gonzalez scissors. Any remaining bursal tissue was removed using curved Gonzalez scissors. Subacromial and subdeltoid adhesions were bluntly dissected. The undersurface of the acromion was palpated and it was smooth. A #2 Ethibond tag suture was placed into the supraspinatus tendon. The tendon was easily mobilized to its insertion point on the glenoid. The wound was irrigated with copious amounts of normal saline solution. One suture anchor was placed into the greater tuberosity in routine fashion. The rotator cuff repair was then performed using horizontal mattress sutures under minimal tension with the patient's elbow at their side. Following the repair the shoulder was taken through a full range of motion. The repair was stable. The wound was irrigated with copious amounts of normal saline solution. The superficial and deep deltoid fascia were closed with #1 Vicryl [id number] interrupted suture. The wound was once again irrigated. The subcutaneous tissues were closed with 2-0 Vicryl interrupted suture. The skin was closed with 3-0 Prolene subcuticular suture and Steri-Strips. The anterior and posterior portals were closed with 3-0 nylon interrupted suture. Dry sterile dressing was placed over all incisions. The patient's right upper extremity was placed into a sling. The patient was awoken and extubated in the operating room. The patient was transferred to the recovery room in stable condition.
== END 2025-02-17 15:09 | disposition home or self-care (01) ==
PROVIDERS: PCP Internal Medicine; Visit Provider Orthopaedic Surgery
PROC: (CPT 23412; principal; 2025-02-17 10:00)
DX: M75.101 Unspecified rotator cuff tear or rupture of right shoulder, not specified as traumatic (principal); M75.41 Impingement syndrome of right shoulder; M25.311 Other instability, right shoulder; M19.011 Primary osteoarthritis, right shoulder; M25.511 Pain in right shoulder; Z87.828 Personal history of other (healed) physical injury and trauma; I10 Essential (primary) hypertension; E78.5 Hyperlipidemia, unspecified; K21.9 Gastro-esophageal reflux disease without esophagitis; Z88.1 Allergy status to other antibiotic agents; Z88.5 Allergy status to narcotic agent; Z79.899 Other long term (current) drug therapy; Z98.890 Other specified postprocedural states; Z87.891 Personal history of nicotine dependence
CPT/HCPCS: 23412; 29824; 29826; C1713; J0131; J0165; J0690; J0696; J1100; J2003; J2250; J2405; J2704; J2795; J3010

== ENCOUNTER → 2025-02-17 07:54 | Outpatient (BNV) | payer MEDICARE, SELFPAY | PROVIDERS: PCP Internal Medicine; Visit Provider Orthopaedic Surgery | DX: S46.011A Strain of muscle(s) and tendon(s) of the rotator cuff of right shoulder, initial encounter (principal); M75.41 Impingement syndrome of right shoulder; M19.011 Primary osteoarthritis, right shoulder | CPT/HCPCS: 23412; 29824 ==

== ENCOUNTER 2025-03-02 13:34 | Outpatient (AMB) | payer MEDICARE, SELFPAY ==
--- NOTE | 2025-03-02 13:38 | MHC.OFFVIS ---
Vital Signs 03/02/25 13:45 Height 5 ft 4 in Weight 171 lb BMI 29.3 Intake Visit Reasons: PO RT shoulder 02/17/25 Intake Note: Isabel is a 70 year old right hand dominant female who presents today for her first post-operative visit after undergoing right shoulder shoulder arthroscopic distal clavicle excision, right shoulder arthroscopic acromioplasty, and right shoulder mini open rotator cuff repair on 02/17/25. She reports mild discomfort in her right shoulder. She has been resting her shoulder as per my instructions. She denies fevers or chills. Allergies erythromycin base (ERYTHROMYCIN BASE) Allergy (Intermediate, Verified 03/02/25 13:54) HIVES oxycodone Adverse Reaction (Severe, Verified 03/02/25 13:54) projectile vomiting cyclobenzaprine (From Flexeril) Adverse Reaction (Intermediate, Verified 03/02/25 13:54) Nausea tramadol (TRAMADOL) Adverse Reaction (Intermediate, Verified 03/02/25 13:54) NAUSEA & VOMITING Medication List - Last Reconciled 03/02/25 by Humberto Faith MD cholecalciferol (vitamin D3) 50 mcg PO QAM diltiazem HCl ER (DILT-XR) 180 mg PO BEDTIME hydrochlorothiazide 25 mg PO QAM hydromorphone (Dilaudid) 4 mg PO Q4H PRN levothyroxine 100 mcg PO QAM metoprolol succinate ER 50 mg PO QAM omeprazole 40 mg PO QAM simvastatin 40 mg PO QPM PFSH Medical History (Updated 02/02/25 @ 13:17 by Glenna Hooker RN) DDD (degenerative disc disease), cervical Arthritis Peptic ulcer GERD (gastroesophageal reflux disease) Seizures Hyperlipidemia Hypothyroid HTN (hypertension) Surgical History (Updated 02/02/25 @ 13:18 by Glenna Hooker RN) History of esophagogastroduodenoscopy (EGD) H/O colonoscopy Hx of tonsillectomy History of back surgery Hx of hysterectomy Family History Father Heart failure Mother Diabetes Social History Household Members Other:: , 3 adult children (2 live in [place]) works for retail [employer] Housing: House Are you a primary hospice home care coordinator to a significant other at home: No Do you presently have visiting nurse or other home services: No Patient Tobacco Use Status: Former Tobacco user Tobacco use type: Cigarette Years Smoked: 41 e-Cigarette/Vaping Use: Never Used service: No Current occupational status: employed Current occupation: rt handed Cognitive needs: No Hearing needs: No Vision needs: Yes Physical Exam Vital Signs: BMI result Body Mass Index 29.3 Extrem Other: Right shoulder examination shows that the surgical incisions are healing well, no erythema, minimal discomfort with passive range of motion Assessment & Plan Assessment & Plan (1) Right shoulder pain: Code(s): M25.511 - Pain in right shoulder Category: Medical Plan Ms. Alonzo is doing very well after undergoing right shoulder rotator cuff repair surgery on 02/17/2025. Her sutures were removed and Steri-Strips placed over her incisions. She can begin passive range of motion exercises at this point. I will hold off on active lifting until she is 8 weeks out from surgery. I will see her back at that time. Feel free to call me at any time should questions regarding her orthopedic management arise. Coding Level of Care Code Global (98945) Diagnoses Right shoulder pain M25.511
--- OUTSIDE RECORDS SUMMARY | 2025-03-02 13:41 | XMS_ITS | Clinical Summary ---
Author Organization [facility] Address [address] [place] [address] Care Team Providers Care Hose Coupling Joiner Name Role Phone Vinay Lawson SHILPI Primary Care Provider [phone] Surgical History Surgery Date Site/Laterality Comments OTHER SURGICAL HISTORY 1998 PROCEDURE: [place] TOTAL ABDOMINAL HYSTERECT W/WO RMVL TUBE OVARY TONSILLECTOMY PROCEDURE: HISTORICAL TONSILLECTOMY COLONOSCOPY 06/05/2008 PROCEDURE: HISTORICAL COLONOSCOPY; COMMENT: normal; repeat in ten years OTHER SURGICAL HISTORY 2003 PROCEDURE: [place] ARTHRD ANT TRANSORL/XTRORAL C1-C2 W/WO EXC ODNTD OTHER SURGICAL HISTORY 2003 PROCEDURE: [place] ARTHRODESIS POSTERIOR INTERBODY 1 [facility] ADDL Medical History Medical History Date [...] 02/10/2004 Zoster Vaccines (1 of 2) 02/10/2004 DTaP,Tdap,and Td Vaccines (2 - Td or Tdap) 11/01/2017 11/02/2007 Cholesterol Screening (Lipid Panel) 07/08/2022 Colorectal Cancer Screening: Colonoscopy 07/08/2022 Falls Risk Assessment 07/08/2022 Hepatitis C Screening 07/08/2022 Social Influencers of Health Screening 07/08/2022 Hypertension/CHF/CAD Annual BMP Blood Test 07/20/2022 Breast Cancer Screening 01/14/2024 01/14/20, 01/09/2021, 07/26/2018 COVID-19 Vaccine ( - 2023-2 5 season) 2024 Depression Screening 08/10/2024 Influenza Vaccine (#1) 2025 RSV Immunization Adult Patients (1 - 1-dose 75+ series) 2029 Osteoporosis Screening (Bone Density Screening) 09/23/2031 09/23/2021 [...] Procedure Name Priority Date/Time Associated Diagnosis Comments [facility] SCREENING DIGITAL Routine 01/13/2022 10:09 AM EDT Encounter for screening mammogram for malignant neoplasm of breast [facility] DEXA AXIAL SKELETON Routine 09/23/2021 11:48 AM EST Encounter for screening for osteoporosis from Last 3 Months or Most Recently Relevant to Health Maintenance Results * [facility] SCREENING DIGITAL (01/13/2022 10:09 AM EDT) Anatomical Region Laterality Modality Mammography 01/13/2022 8:33 AM EDT Narrative 01/13/2022 10:09 AM EDT [facility] Diagnostic Imaging Department [address] [place] [address] Patient: CALLISANTY /Age/Sex: 1955 - 66 - F Unit#: [id number] [facility]Ordering Site: [facility] Ordering Physician: VINAY LAWSON DNP [facility] Screening Digital - 01/13/22911 INDICATION: SCREENING COMPARISON: [facility] mammograms dating back to 07/19/2011 TECHNIQUE: CC and MLO views of the breasts were obtained, using full field digital mammography with 3D tomosynthesis views in the MLO projection. Computer aided detection with the Classical Connection 7.2-H was employed. FINDINGS: The breasts contain scattered fibroglandular tissues. No suspicious masses, suspicious microcalcifications, or areas of architectural distortion are identified. There are no secondary signs of breast malignancy. Benign-appearing breast and dermal type calcifications are present bilaterally. IMPRESSION: No specific mammographic evidence of breast malignancy. Lack of an imaging correlate should not deter or delay biopsy of a clinically significant palpable finding. BI-RADS - Category 2 - Benign finding 3342F, 7025F Annual screening mammography is recommended. Patient entered into a reminder system with a target date for the next mammogram. G0202 [id number]) , [id number] Dictating Physician: KAREEM LINCOLN MD Electronically Signed by: KAREEM LINCOLN MD Dic Date/Time: 01/13/22 1005 Sign date/Time: 01/13/22 1009 Procedure Note Kareem Lincoln MD - 07/30/2022 [facility] Diagnostic Imaging Department [address] [place] [id number] Patient: SANTY MCCURDY Eri /Age/Sex: 1955 - 66 - F Unit#: [id number] Location/Status: [facility]/REG CLI Mnemonic/Ordering Site: [facility] Ordering Physician: VINAY LAWSON DNP [facility] Screening Digital - 01/13/22911 INDICATION: SCREENING COMPARISON: [facility] mammograms dating back to 07/19/2011 TECHNIQUE: CC and MLO views of the breasts were obtained, using full field digital mammography with 3D tomosynthesis views in the MLO projection. Computer aided detection with the Classical Connection 7.2-H was employed. FINDINGS: The breasts contain [...] a target date for the next mammogram. G0711 / [id number]) , [id number] Dictating Physician: KAREEM LINCOLN MD Electronically Signed by: KAREEM LINCOLN MD Dic Date/Time: 01/13/22 1005 Sign date/Time: 01/13/22 1009 us Vinay Lawson NP IMG BI PROCEDURES Final Resul t * [facility] DEXA AXIAL SKELETON (09/23/2021 11:48 AM EST) Anatomical Region Laterality Modality Mammography 09/23/2021 9:52 AM EST Narrative 09/23/2021 11:48 AM EST [facility] Diagnostic Imaging Department [address] [place] [address] Patient: SANTY MCCURDY Eri /Age/Sex: 1955 - 66 - F Unit#: [id number] [facility]ing Site: [facility] Ordering Physician: EVELIO STRAUSS [facility] Dexa Axial Skeleton - 09/23/21 - 0 [facility] Dexa Axial Skeleton INDICATION: POST [...] FRAX estimate if patient has received treatment. [id number] Dictating Physician: KAREEM LINCOLN MD Electronically Signed by: KAREEM LINCOLN MD Dic Date/Time: 09/23/21 1146 Sign date/Time: 09/23/21 1148 Procedure Note Kareem Lincoln MD - 07/30/2022 [facility] Diagnostic Imaging Department [address] [place] [address] Patient: SANTY MCCURDY/Age/Sex: 1955 - 66 - F Unit#: [id number] Location/Status: [facility]/REG CLI Mnemonic/Ordering Site: [facility] Ordering Physician: EVELIO STRAUSS [facility] Dexa Axial Skeleton - 09/23/21 - 1030 [facility] Dexa Axial Skeleton INDICATION: POST [...] than FRAXestimate if patient has received treatment. [id number] Dictating Physician: KAREEM LINCOLN MD Electronically Signed by: KAREEM LINCOLN MD Dic Date/Time: 09/23/21 1146 Sign date/Time: 09/23/21 1148 us Radiology Results Historical MD MCKEON BI PROCEDURE S Final Result from Last 3 Months or Most Recently Relevant to Health Maintenance Care Teams Hose Coupling Joiner Relationship Specialty Start Date End Date Vinay Lawson NP [address] [place] [address] PCP - General 06/30/22
[2025-03-02 13:45] VITALS: BMI 29.3
== END 2025-03-02 14:00 | disposition home or self-care (01) ==
LOC: HO.HOS 13:35
PROVIDERS: PCP Internal Medicine; Visit Provider Orthopaedic Surgery
DX: M25.511 Pain in right shoulder (principal)
CPT/HCPCS: 99024

== ENCOUNTER → 2025-03-02 13:34 | Outpatient (BNVA) | payer MEDICARE, SELFPAY | PROVIDERS: PCP Internal Medicine; Visit Provider Orthopaedic Surgery | DX: M25.511 Pain in right shoulder (principal); Z98.890 Other specified postprocedural states | CPT/HCPCS: 99212 ==

== ENCOUNTER 2025-03-14 11:13 | Outpatient (AMB) | payer MEDICARE, SELFPAY ==
[2025-03-14 11:15] VITALS: BP 110/64; PULSE 69; RESP 18; TEMP 36.6; O2SAT 98; BMI 29.5
--- NOTE | 2025-03-14 11:15 | A.OFFPC_ITS ---
Vital Signs 03/14/25 11:15 Height 5 ft 4 in Weight 172 lb BMI 29.5 BP 110/64 Blood Pressure Location Lt brachial Position Sitting Respiration 18 Pulse 69 Pulse Source Pulse Oximeter Temp 97.9 F Temp Source Oral Pulse Oximetry (%) 98 Oxygen Delivery Method Room Air Intake Visit Reasons: 6 months follow up Intake Note: Pt is here today for 6 months follow up visit. Allergies erythromycin base (ERYTHROMYCIN BASE) Allergy (Intermediate, Verified 03/14/25 11:17) HIVES oxycodone Adverse Reaction (Severe, Verified 03/14/25 11:17) projectile vomiting cyclobenzaprine (From Flexeril) Adverse Reaction (Intermediate, Verified 03/14/25 11:17) Nausea tramadol (TRAMADOL) Adverse Reaction (Intermediate, Verified 03/14/25 11:17) NAUSEA & VOMITING Medication List - Last Reconciled 03/14/25 by Vinita Pedro MD cholecalciferol (vitamin D3) 50 mcg PO QAM diltiazem HCl ER (DILT-XR) 180 mg PO BEDTIME hydrochlorothiazide 25 mg PO QAM hydromorphone (Dilaudid) 4 mg PO Q4H PRN levothyroxine 100 mcg PO QAM metoprolol succinate ER 50 mg PO QAM omeprazole 40 mg PO DAILY simvastatin 40 mg PO QPM Tobacco use date assessed: 03/14/25 Fall risk assessment: No Falls in past year Last assessed Fall Risk: 03/14/25 Dental Screening Dental Screen Date: 03/14/25 Did you have a dental visit in the last 12 months?: Yes Did you have a dental problem in the last 6 months where you did not have access to dental care?: No Was dental information given to patient?: Patient has dentist HPI 6 months follow up HPI Details Pt presents for HTN, hyperlipid, hypothyroid, stable on meds. Patient had a right rotator cuff surgery last month and recovered well [facility] Medical History (Updated 03/14/25 @ 11:51 by Vinita Pedro MD) Colon cancer screening DDD (degenerative disc disease), cervical Arthritis Peptic ulcer GERD (gastroesophageal reflux disease) Seizures Hyperlipidemia Hypothyroid HTN (hypertension) Surgical History Hx of shoulder surgery History of esophagogastroduodenoscopy (EGD) H/O colonoscopy Hx of tonsillectomy History of back surgery Hx of hysterectomy Family History Father Heart failure Mother Diabetes Social History Household Members Other:: , 3 adult children (2 live in [place]) works for [employer] Housing: House Are you a primary resident care aide to a significant other at home: No Do you presently have visiting nurse or other home services: No Patient Tobacco Use Status: Former Tobacco user Tobacco use type: Cigarette Years Smoked: 41 e-Cigarette/Vaping Use: Never Used service: No Current occupational status: employed Current occupation: rt handed Cognitive needs: No Hearing needs: No Vision needs: Yes Questionnaire PHQ-9 Over the last 2 weeks, how often have you been bothered by any of the following problems? 1. Little interest or pleasure in doing things: not at all 2. Feeling down, depressed, or hopeless: not at all 3. Trouble falling or staying asleep, or sleeping too much: not at all 4. Feeling tired or having little energy: not at all 5. Poor appetite or overeating: not at all 6. Feeling bad about yourself - or that you are a failure or have let yourself or your family down: not at all 7. Trouble concentrating on things, such as reading the newspaper or watching television: not at all 8. Moving or speaking so slowly that other people could have noticed. Or the opposite - being so fidgety or restless that you have been moving around a lot more than usual: not at all 9. Thoughts that you would be better off or of hurting yourself in some way: not at all Total score: 0 Depression Screening Interpretation: Negative Depression Screening Done: Yes 44696 - PHQ-9 Billing: Yes Source: Developed by Drs. Louie Marcelo, Alyce Alexandra, Berto Coto and colleagues, with an educational cirilo from [employer]. Thrive Questionnaire Date Thrive assessed: 03/14/25 I am a: Patient What is your living situation today?: I have a steady place to live Within the past 12 months, did the food you bought not last and you didn't have the money to get more?: Never true Within the past 12 months, did you worry whether your food would run out before you got money to buy more?: Never true Do you have trouble paying for medicines?: No Do you have trouble getting transportation to medical appointments?: No Do you have trouble paying your heating and electricity bill?: No Do you have trouble taking care of your child, family member or friend?: No Do you have trouble with day-to-day activities such as bathing, preparing meals, shopping, managing finances, etc.?: No Are you currently unemployed and looking for a job?: No Are you interested in more education?: No Please select the resources that you would like help with: None Currently or been in a relationship where the following occur: No concerns reported THRIVE Score: 0 AUDIT C Alcohol Use Questionnaire (AUDIT-C) 1. How often do you have a drink containing alcohol?: Monthly or less 2. How many drinks containing alcohol do you have on a typical day when you are drinking?: 1 or 2 3. How often do you have six or more drinks on one occasion?: Never Total Score: 1 JC-7 AMB Questionnaire JC-7 Date JC - 7 assessed: 03/14/25 Feeling nervous, anxious, or on edge: 0 = Not at all Not being able to stop or control worryin = Not at all Worrying too much about different things: 0 = Not at all Trouble relaxin = Not at all Being so restless that it is hard to sit still: 0 = Not at all Becoming easily annoyed or irritable: 0 = Not at all Feeling afraid as if something awful might happen: 0 = Not at all Total JC-7 score (0-4 normal; 5-9 mild; 10-14 moderate; 15-21 severe): 0 Source: Developed by Drs. Louie Marcelo, Alyce Alexandra, Berto Coto and colleagues, with an educational cirilo from [employer]. JC-7 Assessment Billing JC-7 Assessment Tool: JC-7 Assessment 50200 Review of Systems Const All systems reviewed & are unremarkable except as noted in HPI and below Eyes Reports no additional complaints ENT Reports no additional complaints Card Reports no additional complaints Resp Reports no additional complaints GI Reports no additional complaints Reports no additional complaints Physical exam (Primary Care) Vital Signs: Last Vital Signs Temp 97.9 F 03/14/25 11:15 Pulse 69 03/14/25 11:15 Resp 18 03/14/25 11:15 BP 110/64 03/14/25 11:15 Pulse Ox 98 03/14/25 11:15 Oxygen Delivery Method Room Air 03/14/25 11:15 BMI result Body Mass Index 29.5 Tobacco/Smoking Status: Tobacco use Status Tobacco use date assessed 03/14/25 03/14/25 11:22 Patient Tobacco Use Status Former Tobacco user 03/14/25 11:22 Tobacco use type Cigarette 03/14/25 11:22 e-Cigarette/Vaping Use Never Used 03/14/25 11:22 PHQ-9: PHQ-9 Score PHQ-9: Total score 0 03/14/25 11:51 Depression Screening Interpretation: Negative Thrive Assessment: Date of Thrive Assessment Date Thrive assessed 03/14/25 03/14/25 11:22 Currently or been in a relationship where the following occur: No concerns reported Const General: no acute distress HENMT Head: Yes normal to inspection Mouth: Normal oral and palatal mucosa present Throat: Yes posterior oropharynx normal Eyes General: appearance normal, both eyes and all related structures Resp Effort & Inspection: normal respiratory effort Auscultation: clear to auscultation bilaterally Cardio Rhythm: regular rhythm Heart sounds: S1 normal heart sound present and S2 normal heart sound present GI Inspection: Yes normal to inspection Palpation (GI): Soft to palpation Percussion: Yes normal to percussion Auscultation: normal bowel sounds Coding Level of Care Code Est Pt Level 4 (59919) Diagnoses Hypothyroidism E03.9 Hyperlipidemia E78.5 HTN (hypertension) I10 Additional Codes JC-7 Assessment Billing - JC-7 Assessment Tool: JC-7 Assessment 40279 ([id number]) PHQ-9 - 34173 - PHQ-9 Billing: Yes ([id number]) Assessment & Plan Assessment & Plan (1) Hypothyroidism: Code(s): E03.9 - Hypothyroidism, unspecified Category: Medical Plan: Continue levothyroxine, check TSH today (2) Hyperlipidemia: Code(s): E78.5 - Hyperlipidemia, unspecified Category: Medical Plan: Change simvastatin to atorvastatin because of interaction with diltiazem (3) HTN (hypertension): Code(s): I10 - Essential (primary) hypertension Category: Medical Plan: Continue current medications Orders: Orders Comprehensive [place]. Panel Fast 6 Months E78.5 - Hyperlipidemia, unspecified, I10 - Essential (primary) hypertension Complete Blood Count Auto Diff 6 Months E03.9 - Hypothyroidism, unspecified, E78.5 - Hyperlipidemia, unspecified, I10 - Essential (primary) hypertension Lipid Panel 6 Months E03.9 - Hypothyroidism, unspecified, E78.5 - Hyperlipidemia, unspecified, I10 - Essential (primary) hypertension TSH reflex Free T4 6 Months E03.9 - Hypothyroidism, unspecified, E78.5 - Hyperlipidemia, unspecified, I10 - Essential (primary) hypertension TSH reflex Free T4 Today E03.9 - Hypothyroidism, unspecified Medications: New diltiazem HCl ER (DILT-XR) 180 mg PO BEDTIME 90 caps 3RF hydrochlorothiazide 25 mg PO QAM 90 tabs 3RF metoprolol succinate ER 50 mg PO QAM 90 tabs 3RF atorvastatin (Lipitor) 20 mg PO BEDTIME 90 tabs 3RF Refilled omeprazole 40 mg PO DAILY 90 caps 3RF Discontinued simvastatin Discontinued Reason: Doctor's Order 40 mg PO QPM 90 tabs 3RF
--- OUTSIDE RECORDS SUMMARY | 2025-03-14 11:58 | XMS_ITS | Clinical Summary ---
Author Organization [facility] Address [address] [place] [address] Care Team Providers Care Sap Functional Analyst Name Role Phone Vinay Lawson SHILPI Primary Care Provider [phone] Surgical History Surgery Date Site/Laterality Comments OTHER SURGICAL HISTORY 1998 PROCEDURE: [place] TOTAL ABDOMINAL HYSTERECT W/WO RMVL TUBE OVARY TONSILLECTOMY PROCEDURE: HISTORICAL TONSILLECTOMY COLONOSCOPY 06/05/2008 PROCEDURE: HISTORICAL COLONOSCOPY; COMMENT: normal; repeat in ten years OTHER SURGICAL HISTORY 2003 PROCEDURE: NC ARTHRD ANT TRANSORL/XTRORAL C1-C2 W/WO EXC ODNTD OTHER SURGICAL HISTORY 2003 PROCEDURE: [place] ARTHRODESIS POSTERIOR INTERBODY 1 [facility] EA ADDL Medical History Medical History [...] Procedure Name Priority Date/Time Associated Diagnosis Comments [facility] SCREENING DIGITAL Routine 01/13/2022 10:09 AM EDT Encounter for screening mammogram for malignant neoplasm of breast [facility] DEXA AXIAL SKELETON Routine 09/23/2021 11:48 AM EST Encounter for screening for osteoporosis from Last 3 Months or Most Recently Relevant to Health Maintenance Results * [facility] SCREENING DIGITAL (01/13/2022 10:09 AM EDT) Anatomical Region Laterality Modality Mammography 01/13/2022 8:33 AM EDT Narrative 01/13/2022 10:09 AM EDT [facility] Diagnostic Imaging Department [address] [place] [address] Patient: CALLISANTY /Age/Sex: 1955 - 66 - F Unit#: [id number] [facility] Mnemonic/Ordering Site: [facility] Ordering Physician: VINAY LAWSON DNP [facility] Screening Digital - 01/13/22911 INDICATION: SCREENING COMPARISON: [facility] mammograms dating back to 07/19/2011 TECHNIQUE: CC and MLO views of the breasts were obtained, using full field digital mammography with 3D tomosynthesis views in the MLO projection. Computer aided detection with the MDCapsule 7.2-H was employed. FINDINGS: The breasts contain [...] target date for the next mammogram. G0202 [id number]) , [id number] Dictating Physician: KAREEM LINCOLN MD Electronically Signed by: KAREEM LINCOLN MD Dic Date/Time: 01/13/22 1005 Sign date/Time: 01/13/22 1009 Procedure Note Kareem Lincoln MD - 07/30/2022 [facility] Diagnostic Imaging Department [address] [place] [address] Patient: SANTY MCCRUDY Eri /Age/Sex: 1955 - 66 - F Unit#: [id number] Location/Status: [facility]/REG CLI Mnemonic/Ordering Site: [facility] Ordering Physician: VINAY LAWSON DNP [facility] Screening Digital - 01/13/22911 INDICATION: SCREENING COMPARISON: [facility] mammograms dating back to 07/19/2011 TECHNIQUE: CC and MLO views of the breasts were obtained, using full field digital mammography with 3D tomosynthesis views in the MLO projection. Computer aided detection with the MDCapsule 7.2-H was employed. FINDINGS: The breasts contain [...] a target date for the next mammogram. G0861 / [id number]) , [id number] Dictating Physician: KAREEM LINCOLN MD Electronically Signed by: KAREEM LINCOLN MD Dic Date/Time: 01/13/22 1005 Sign date/Time: 01/13/22 1009 us Vinay Lawson NP IMG BI PROCEDURES Final Resul t * [facility] DEXA AXIAL SKELETON (09/23/2021 11:48 AM EST) Anatomical Region Laterality Modality Mammography 09/23/2021 9:52 AM EST Narrative 09/23/2021 11:48 AM EST [facility] Diagnostic Imaging Department [address] [place] [address] Patient: SANTY MCCURDY Eri /Age/Sex: 1955 - 66 - F Unit#: [id number] [facility] Mn[facility]ing Site[facility] Ordering Physician: EVELIO STRAUSS [facility] Dexa Axial Skeleton - 09/23/21 - 0 [facility] Dexa Axial Skeleton INDICATION: POST MENOPAUSE [...] FRAX estimate if patient has received treatment. [id number] Dictating Physician: KAREEM LINCOLN MD Electronically Signed by: KAREEM LINCOLN MD Dic Date/Time: 09/23/21 1146 Sign date/Time: 09/23/21 1148 Procedure Note Kareem Lincoln MD - 07/30/2022 [facility] Diagnostic Imaging Department [address] [place] [address] Patient: SANTY MCCURDY/Age/Sex: 1955 - 66 - F Unit#: [id number] Location/Status: [facility]REG CLI Mnemonic/Ordering Site: [facility] Ordering Physician: EVELIO STRAUSS [facility] Dexa Axial Skeleton - 09/23/21 - 1030 [facility] Dexa Axial Skeleton INDICATION: POST MENOPAUSE [...] than FRAXestimate if patient has received treatment. [id number] Dictating Physician: KAREEM LINCOLN MD Electronically Signed by: KAREEM LINCOLN MD Dic Date/Time: 09/23/21 1146 Sign date/Time: 09/23/21 1148 us Radiology Results Historical MD MCKEON BI PROCEDURE S Final Result from Last 3 Months or Most Recently Relevant to Health Maintenance Care Teams Sap Functional Analyst Relationship Specialty Start Date End Date Vinay Lawson NP [address] [place] [address] PCP - General 06/30/22
== END 2025-03-14 11:55 | disposition home or self-care (01) ==
LOC: HO.HMCC 11:14
PROVIDERS: PCP Internal Medicine; Visit Provider Internal Medicine
DX: E03.9 Hypothyroidism, unspecified (principal); E78.5 Hyperlipidemia, unspecified; I10 Essential (primary) hypertension

== ENCOUNTER 2025-03-14 11:13 | Outpatient (REF) | payer MEDICARE, SELFPAY | END 2025-03-14 11:14 | disposition home or self-care (01) | LOC: HO.HMGCLDS 11:13 | PROVIDERS: PCP Internal Medicine; Visit Provider Internal Medicine | DX: I10 Essential (primary) hypertension (principal); E78.5 Hyperlipidemia, unspecified; E03.9 Hypothyroidism, unspecified; Z79.899 Other long term (current) drug therapy | CPT/HCPCS: 36415; 84443; 96127; 99212 ==

== ENCOUNTER 2025-04-13 10:35 | Outpatient (AMB) | payer MEDICARE, SELFPAY ==
--- NOTE | 2025-04-13 10:37 | A.OFFVIS_ITS ---
Vital Signs 04/13/25 10:42 Height 5 ft 4 in Weight 170 lb BMI 29.2 Handedness Right Intake Visit Reasons: PO RT shoulder 02/17/25 DR Intake Note: Isabel is a 70 year old female who presents with complaints of mild discomfort in her right shoulder after undergoing right shoulder rotator cuff repair surgery on 02/17/2025. She has been doing iilab-py-oxfwru exercises on her own. She denies any fevers or chills. She would like to return to light duty at work. She would also like to go to formal physical therapy. Allergies erythromycin base (ERYTHROMYCIN BASE) Allergy (Intermediate, Verified 04/13/25 10:41) HIVES oxycodone Adverse Reaction (Severe, Verified 04/13/25 10:41) projectile vomiting cyclobenzaprine (From Flexeril) Adverse Reaction (Intermediate, Verified 04/13/25 10:41) Nausea tramadol (TRAMADOL) Adverse Reaction (Intermediate, Verified 04/13/25 10:41) NAUSEA & VOMITING Medication List - Last Reconciled 04/13/25 by Humberto Faith MD atorvastatin (Lipitor) 20 mg PO BEDTIME cholecalciferol (vitamin D3) 50 mcg PO QAM diltiazem HCl ER (DILT-XR) 180 mg PO BEDTIME hydrochlorothiazide 25 mg PO QAM hydromorphone (Dilaudid) 4 mg PO Q4H PRN levothyroxine 100 mcg PO QAM metoprolol succinate ER 50 mg PO QAM omeprazole 40 mg PO DAILY PFSH Medical History (Updated 03/14/25 @ 11:51 by Vinita Pedro MD) Colon cancer screening DDD (degenerative disc disease), cervical Arthritis Peptic ulcer GERD (gastroesophageal reflux disease) Seizures Hyperlipidemia Hypothyroid HTN (hypertension) Surgical History Hx of shoulder surgery History of esophagogastroduodenoscopy (EGD) H/O colonoscopy Hx of tonsillectomy History of back surgery Hx of hysterectomy Family History Father Heart failure Mother Diabetes Social History Household Members Other:: , 3 adult children (2 live in [place]) works for [employer] Housing: House Are you a primary adult caregiver to a significant other at home: No Do you presently have visiting nurse or other home services: No Patient Tobacco Use Status: Former Tobacco user Tobacco use type: Cigarette Years Smoked: 41 e-Cigarette/Vaping Use: Never Used service: No Current occupational status: employed Current occupation: rt handed Cognitive needs: No Hearing needs: No Vision needs: Yes Physical Exam Vital Signs: BMI result Body Mass Index 29.2 Extrem Other: Right shoulder examination shows that the surgical incisions are well healed, no erythema, almost full range motion when compared to her left shoulder, minimal discomfort with resisted forward flexion, no discomfort with resisted internal or external rotation Assessment & Plan Assessment & Plan (1) Rotator cuff insufficiency of right shoulder: Code(s): M25.311 - Other instability, right shoulder Category: Medical Plan Ms. Alonzo continues to do well after undergoing right shoulder rotator cuff repair surgery on 02/17/2025. She can now progress to active range of motion exercises and gentle strengthening exercises. The do's and don'ts of lifting were discussed at length with the patient. The patient can return to light duty at work. She will avoid any activities that cause her increase in her discomfort. She will contact me prior to her follow-up appointment in 2 months should any questions or concerns arise. Feel free to call me at any time should questions regarding her orthopedic management arise. Orders: Orders PT Evaluation and Treatment Today M25.311 - Other instability, right shoulder Coding Level of Care Code Global (27301) Diagnoses Rotator cuff insufficiency of right shoulder M25.311
[2025-04-13 10:42] VITALS: BMI 29.2
--- OUTSIDE RECORDS SUMMARY | 2025-04-13 12:02 | XMS_ITS | Clinical Summary ---
Author Organization [facility] Address [address] [place] [address] Care Team Providers Care Gleason Gear Generator Name Role Phone Vinay Lawson SHILPI Primary Care Provider Surgical History Surgery Date Site/Laterality Comments OTHER SURGICAL HISTORY 1998 PROCEDURE: [place] TOTAL ABDOMINAL HYSTERECT W/WO RMVL TUBE OVARY TONSILLECTOMY PROCEDURE: HISTORICAL TONSILLECTOMY COLONOSCOPY 06/05/2008 PROCEDURE: HISTORICAL COLONOSCOPY; COMMENT: normal; repeat in ten years OTHER SURGICAL HISTORY 2003 PROCEDURE: MO ARTHRD ANT TRANSORL/XTRORAL C1-C2 W/WO EXC ODNTD OTHER SURGICAL HISTORY 2003 PROCEDURE: [place] ARTHRODESIS POSTERIOR INTERBODY 1 [facility] EA ADDL Medical History Medical History [...] 11/01/2017 11/02/2007 Cholesterol Screening (Lipid Panel) 07/08/2022 Falls Risk Assessment 07/08/2022 Hepatitis C Screening 07/08/2022 Social Influencers of Health Screening 07/08/2022 Hypertension/CHF/CAD Annual BMP Blood Test 07/20/2022 Breast Cancer Screening 01/14/2024 01/14/20, 01/09/2021, 07/26/2018 Depression Screening 08/10/2024 COVID-19 Vaccine ( - 2023-2 5 season) 2025 Influenza Vaccine (#1) 2025 Colorectal Cancer Screening: FIT-DNA (Cologuard) 02/15/2028 02/14/2025, 02/14/2025 RSV Immunization Adult Patients (1 - 1-dose [...] Priority Date/Time Associated Diagnosis Comments [facility] SCREENING DIGITAL Routine 01/13/2022 10:09 AM EDT Encounter for screening mammogram for malignant neoplasm of breast [facility] DEXA AXIAL SKELETON Routine 09/23/2021 11:48 AM EST Encounter for screening for osteoporosis from Last 3 Months or Most Recently Relevant to Health Maintenance Results * [facility] SCREENING DIGITAL (01/13/2022 10:09 AM EDT) Anatomical Region Laterality Modality Mammography 01/13/2022 8:33 AM EDT Narrative 01/13/2022 10:09 AM EDT [facility] Diagnostic Imaging Department [address] [place] [address] Patient: SANTY MCCURDY /Age/Sex: 1955 - 66 - F Unit#: [id number] Location/Status: [facility]/REG CLI Mnemonic/Ordering Site: [facility] Ordering Physician: VINAY LAWSON DNP [facility] Screening Digital - 01/13/22 - 911 INDICATION: SCREENING COMPARISON: [facility] mammograms dating back to 07/19/2011 TECHNIQUE: CC and MLO views of the breasts were obtained, using full field digital mammography with 3D tomosynthesis views in the MLO projection. Computer aided detection with the [employer] 7.2-H was employed. FINDINGS: The breasts contain [...] target date for the next mammogram. G0202 [id number]) , [id number] Dictating Physician: HARMONY LINCOLN MD Electronically Signed by: HARMONY LINCOLN MD Dic Date/Time: 01/13/22 1005 Sign date/Time: 01/13/22 1009 Procedure Note Harmony Lincoln MD - 07/30/2022 [facility] Diagnostic Imaging Department [address] [place], [place] [id number] Patient: SANTY MCCURDY Eri /Age/Sex: 1955 - 66 - F Unit#: [id number] Location/Status: [facility] CLI Mnemonic/Ordering Site: [facility] Ordering Physician: VINAY LAWSON DNP [facility] Screening Digital - 01/13/22 - 911 INDICATION: SCREENING COMPARISON: [facility] mammograms dating back to 07/19/2011 TECHNIQUE: CC and MLO views of the breasts were obtained, using full field digital mammography with 3D tomosynthesis views in the MLO projection. Computer aided detection with the [employer] [place].2-H was employed. FINDINGS: The breasts contain scattered [...] target date for the next mammogram. G0202 / [id number] , [id number] Dictating Physician: HARMONY LINCOLN MD Electronically Signed by: HARMONY LINCOLN MD Dic Date/Time: 01/13/22 1005 Sign date/Time: 01/13/22 1009 Vinay Lawson NP IMG BI PROCEDURES Final Resul t * [facility] DEXA AXIAL SKELETON (09/23/2021 11:48 AM EST) Anatomical Region Laterality Modality Mammography 09/23/2021 9:52 AM EST Narrative 09/23/2021 11:48 AM EST [facility] Diagnostic Imaging Department [address] [place] [id number] Patient: SANTY MCCURDY /Age/Sex: 1955 - 66 - F Unit#: [id number] Location/Status: [facility]REG CLI [facility] Ordering Physician: EVELIO STRAUSS [facility] Dexa Axial Skeleton - 09/23/21 - 0 [facility] Dexa Axial Skeleton INDICATION: POST [...] FRAX estimate if patient has received treatment. [id number] Dictating Physician: HARMONY LINCOLN MD Electronically Signed by: HARMONY LINCOLN MD Dic Date/Time: 09/23/21 1146 Sign date/Time: 09/23/21 1148 Procedure Note Harmony Lincoln MD - 07/30/2022 [facility] Diagnostic Imaging Department [address] [place] [address] Patient: SANTY MCCURDY /Age/Sex: 1955 - 66 - F Unit#: [id number] Location/Status: [facility]REG CLI Mnemonic/Ordering Site: [facility] Ordering Physician: EVELIO STRAUSS [facility] Dexa Axial Skeleton - 09/23/211029 [facility] Dexa Axial Skeleton INDICATION: POST [...] than FRAXestimate if patient has received treatment. [id number] Dictating Physician: HARMONY LINCOLN MD Electronically Signed by: HARMONY LINCOLN MD Dic Date/Time: 09/23/21 1146 Sign date/Time: 09/23/21 1148 us Radiology Results Historical MD MCKEON BI PROCEDURE S Final Result from Last 3 Months or Most Recently Relevant to Health Maintenance Care Teams Gleason Gear Generator Relationship Specialty Start Date End Date Vinay Lawson NP [address] [place] [address] PCP - General 11/21/22
== END 2025-04-13 10:57 | disposition home or self-care (01) ==
LOC: HO.HOS 10:35
PROVIDERS: PCP Internal Medicine; Visit Provider Orthopaedic Surgery
DX: M25.311 Other instability, right shoulder (principal)
CPT/HCPCS: 99024

== ENCOUNTER → 2025-04-13 10:35 | Outpatient (BNVA) | payer MEDICARE, SELFPAY | PROVIDERS: PCP Internal Medicine; Visit Provider Orthopaedic Surgery | DX: Z47.89 Encounter for other orthopedic aftercare (principal); M25.311 Other instability, right shoulder | CPT/HCPCS: 99212 ==

== ENCOUNTER 2025-06-15 10:23 | Outpatient (AMB) | payer MEDICARE, SELFPAY ==
[2025-06-15 10:31] VITALS: BMI 29.2
--- NOTE | 2025-06-15 10:31 | MHC.OFFVIS ---
Vital Signs 06/15/25 10:31 Height 5 ft 4 in Weight 170 lb BMI 29.2 Intake Visit Reasons: OV- RT shoulder 02/17/25 DR Intake Note: Isabel is a 70 year old female who presents with complaints of mild intermittent discomfort in her right shoulder after undergoing right shoulder rotator cuff repair surgery on 02/17/2025. She continues with her physical therapy exercises. She denies any fevers or chills. Allergies erythromycin base (ERYTHROMYCIN BASE) Allergy (Intermediate, Verified 06/15/25 10:37) HIVES oxycodone Adverse Reaction (Severe, Verified 06/15/25 10:37) projectile vomiting cyclobenzaprine (From Flexeril) Adverse Reaction (Intermediate, Verified 06/15/25 10:37) Nausea tramadol (TRAMADOL) Adverse Reaction (Intermediate, Verified 06/15/25 10:37) NAUSEA & VOMITING Medication List - Last Reconciled 06/15/25 by Humberto Faith MD atorvastatin (Lipitor) 20 mg PO BEDTIME cholecalciferol (vitamin D3) 50 mcg PO QAM diltiazem HCl ER (DILT-XR) 180 mg PO BEDTIME hydrochlorothiazide 25 mg PO QAM hydromorphone (Dilaudid) 4 mg PO Q4H PRN levothyroxine 100 mcg PO QAM metoprolol succinate ER 50 mg PO QAM omeprazole 40 mg PO DAILY PFSH Medical History (Updated 03/14/25 @ 11:51 by Vinita Pedro MD) Colon cancer screening DDD (degenerative disc disease), cervical Arthritis Peptic ulcer GERD (gastroesophageal reflux disease) Seizures Hyperlipidemia Hypothyroid HTN (hypertension) Surgical History Hx of shoulder surgery History of esophagogastroduodenoscopy (EGD) H/O colonoscopy Hx of tonsillectomy History of back surgery Hx of hysterectomy Family History Father Heart failure Mother Diabetes Social History Household Members Other:: , 3 adult children (2 live in [place]) works for [employer] Housing: House Are you a primary career counselor to a significant other at home: No Do you presently have visiting nurse or other home services: No Patient Tobacco Use Status: Former Tobacco user Tobacco use type: Cigarette Years Smoked: 41 e-Cigarette/Vaping Use: Never Used service: No Current occupational status: employed Current occupation: rt handed Cognitive needs: No Hearing needs: No Vision needs: Yes Physical Exam Vital Signs: BMI result Body Mass Index 29.2 Const Other: Well-nourished well-developed very friendly female awake alert and oriented x3 in no acute distress Extrem Other: Right shoulder examination shows that the surgical incisions are well healed, no erythema, full range of motion when compared to her left shoulder, minimal discomfort with resisted forward flexion, internal rotation or external rotation Assessment & Plan Assessment & Plan (1) Right shoulder pain: Code(s): M25.511 - Pain in right shoulder Category: Medical Plan Ms. Alonzo continues to do very well after undergoing right shoulder rotator cuff repair surgery on 02/17/2025. She will continue with her physical therapy exercises. She will gradually transition to a home exercise program. The do's and don'ts of lifting were discussed at length with the patient. She will contact me prior to her follow-up appointment in 3 months should any questions or concerns arise. Feel free to call me at any time should questions regarding her orthopedic management arise. I spent 21 minutes in reviewing the patient's records and imaging studies, seeing the patient and documenting in the medical record. Coding Level of Care Code Est Pt Level 3 (96377) Complex EM visit Add On G2211 Diagnoses Right shoulder pain M25.511
--- OUTSIDE RECORDS SUMMARY | 2025-06-15 12:18 | XMS_ITS | Clinical Summary ---
Author Organization [facility] Address [address] [place] [address] Care Team Providers Care School Supervisor Name Role Phone Vinay Lawson SHILPI Primary Care Provider [phone] Surgical History Surgery Date Site/Laterality Comments OTHER SURGICAL HISTORY 1998 PROCEDURE: [place] TOTAL ABDOMINAL HYSTERECT W/WO RMVL TUBE OVARY TONSILLECTOMY PROCEDURE: HISTORICAL TONSILLECTOMY COLONOSCOPY 06/05/2008 PROCEDURE: HISTORICAL COLONOSCOPY; COMMENT: normal; repeat in ten years OTHER SURGICAL HISTORY 2003 PROCEDURE: [place] ARTHRD ANT TRANSORL/XTRORAL C1-C2 W/WO EXC ODNTD OTHER SURGICAL HISTORY 2003 PROCEDURE: [place] ARTHRODESIS POSTERIOR INTERBODY 1 [facility] EA ADDL Medical History Medical History [...] Procedure Name Priority Date/Time Associated Diagnosis Comments [facility] SCREENING DIGITAL Routine 01/13/2022 10:09 AM EDT Encounter for screening mammogram for malignant neoplasm of breast [facility] DEXA AXIAL SKELETON Routine 09/23/2021 11:48 AM EST Encounter for screening for osteoporosis from Last 3 Months or Most Recently Relevant to Health Maintenance Results * [facility] SCREENING DIGITAL (01/13/2022 10:09 AM EDT) Anatomical Region Laterality Modality Mammography 01/13/2022 8:33 AM EDT Narrative 01/13/2022 10:09 AM EDT [facility] Diagnostic Imaging Department [address] [place] [address] Patient: SANTY MCCURDY /Age/Sex: 1955 - 66 - F Unit#: [id number] Location/Status: [facility]/REG CLI Mnemonic/Ordering [facility] Ordering Physician: VINAY LAWSON DNP [facility] Screening Digital - 01/13/22 - 911 INDICATION: SCREENING COMPARISON: [facility] mammograms dating back to 07/19/2011 TECHNIQUE: CC and MLO views of the breasts were obtained, using full field digital mammography with 3D tomosynthesis views in the MLO projection. Computer aided detection with the [employer] 7.2-H was employed. FINDINGS: The breasts contain [...] target date for the next mammogram. G0202 [id number]) , [id number] Dictating Physician: HARMONY LINCOLN MD Electronically Signed by: HARMONY LINCOLN MD Dic Date/Time: 01/13/22 1005 Sign date/Time: 01/13/22 1009 Procedure Note Harmony Lincoln MD - 07/30/2022 [facility] Diagnostic Imaging Department [address] [place], [place] [id number] Patient: SANTY MCCURDY Eri /Age/Sex: 1955 - 66 - F Unit#: [id number] Location/Status: [facility] CLI Mnemonic/Ordering Site: [facility] Ordering Physician: VINAY LAWSON DNP [facility] Screening Digital - 01/13/22 - 911 INDICATION: SCREENING COMPARISON: [facility] mammograms dating back to 07/19/2011 TECHNIQUE: CC and MLO views of the breasts were obtained, using full field digital mammography with 3D tomosynthesis views in the MLO projection. Computer aided detection with the Zhaopin.2-H was employed. FINDINGS: The breasts contain scattered [...] date for the next mammogram. G0202 / [id number] , [id number] Dictating Physician: HARMONY LINCOLN MD Electronically Signed by: HARMONY LINCOLN MD Dic Date/Time: 01/13/22 1005 Sign date/Time: 01/13/22 1009 Vinay Lawson NP IMG BI PROCEDURES Final Resul t * [facility] DEXA AXIAL SKELETON (09/23/2021 11:48 AM EST) Anatomical Region Laterality Modality Mammography 09/23/2021 9:52 AM EST Narrative 09/23/2021 11:48 AM EST [facility] Diagnostic Imaging Department [address] [place] [id number] Patient: SANTY MCCURDY /Age/Sex: 1955 - 66 - F Unit#: [id number] Location/Status: [facility]/REG CLI Mnemonic[facility] Ordering Physician: EVELIO STRAUSS [facility] Dexa Axial Skeleton - 09/23/21 - 0 [facility] Dexa Axial Skeleton INDICATION: POST [...] FRAX estimate if patient has received treatment. [id number] Dictating Physician: HARMONY LINCOLN MD Electronically Signed by: HARMONY LINCOLN MD Dic Date/Time: 09/23/21 1146 Sign date/Time: 09/23/21 1148 Procedure Note Harmony Lincoln MD - 07/30/2022 [facility] Diagnostic Imaging Department [address] [place] [address] Patient: SANTY MCCURDY /Age/Sex: 1955 - 66 - F Unit#: [id number] Location/Status: [facility]/REG CLI Mnemonic/Ordering Site: [facility] Ordering Physician: EVELIO STRAUSS [facility] Dexa Axial Skeleton - 09/23/211029 [facility] Dexa Axial Skeleton INDICATION: POST [...] than FRAXestimate if patient has received treatment. [id number] Dictating Physician: HARMONY LINCOLN MD Electronically Signed by: HARMONY LINCOLN MD Dic Date/Time: 09/23/21 1146 Sign date/Time: 09/23/21 1148 us Radiology Results Historical MD MCKEON BI PROCEDURE S Final Result from Last 3 Months or Most Recently Relevant to Health Maintenance Care Teams School Supervisor Relationship Specialty Start Date End Date Vinay Lawson NP [address] [place] [address] PCP - General 11/21/22
== END 2025-06-15 10:54 | disposition home or self-care (01) ==
LOC: HO.HOS 10:24
PROVIDERS: PCP Internal Medicine; Visit Provider Orthopaedic Surgery
DX: M25.511 Pain in right shoulder (principal)
CPT/HCPCS: 99213; G2211

== ENCOUNTER → 2025-06-15 10:23 | Outpatient (BNVA) | payer MEDICARE, SELFPAY | PROVIDERS: PCP Internal Medicine; Visit Provider Orthopaedic Surgery | DX: M25.511 Pain in right shoulder (principal); Z98.890 Other specified postprocedural states | CPT/HCPCS: 99212 ==